=== PATIENT | female | born 1990 | race Caucasian/White ===

== ENCOUNTER 2018-05-20 09:39 | Emergency (ER) | payer OTHER ==
--- OUTSIDE RECORDS SUMMARY | 2018-05-20 09:45 | XMS REPORT ---
:1990 External Reference #:[id number] Author Organization [facility] Address [address] [place] [address] Phone [phone] Care Team Providers Name Role Phone Dilia Barreto Care Team Information Security Guard Dispatcher Unavailable Dilia Barreto Primary Care Physician Unavailable Payers Type Date Identification Numbers Payment Provider Subscriber Medicaid Effective: Policy Number: [id number] [facility] Keli Pierre 2014 PayID: [id number] [address] [address] [place] [address] Problems Date Description Provider Status Onset: 12/28/2016 Type II diabetes mellitus Dilia Barreto M.D. Active uncontrolled Onset: 08/23/2015 Acute gingivitis Dilia Barreto M.D. Active Onset: 08/23/2015 Conjunctivitis Dilia Barreto M.D. Active Onset: 08/23/2015 Irritable bowel syndrome Dilia Barreto M.D. Active Onset: 08/23/2015 Type 2 diabetes mellitus Dilia Barreto M.D. Active Onset: 10/30/2014 Morbid obesity Dilia Barreto M.D. Active Onset: 10/30/2014 Depressive disorder Dilia Barreto M.D. Active Onset: 10/30/2014 Vitamin D deficiency Dilia Barreto M.D. Active Onset: 11/22/2010 Hypothyroidism Dilia Barreto M.D. Active Family History Date Family Member(s) Problem(s) Comments Father age? DM. estranged. Mother DM. Number of Children None Number of Siblings by mother - 1 brother, 1 sister - good health. from father - ??2 brothers - drinkers, 1 sister - healthy. First Brother 30 dt AIDS. lived in [place]. Maternal Grandmother 87, ? cause of . Social History Type Date Description Comments Education Highest level of education completed is 10th grade. special education classes. Marital Status Patient is Living Situation Lives with spouse, mother and step-father. spouse is also disabled. 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 with cousin. Abuse No history of abuse Cigarette Use Former Cigarette Smoker /2 quit 11/28 Pack Daily ETOH Use Rare Smoking Patient is a former smoker Daily Caffeine Consumes on average 1 soda drinks a 2 liter bottle per day of soda every day when her check comes in at the beginning of the month. Exercise Type/Frequency Exercises regularly . Walks Current Seat Belt/Car Seat Always uses a seat belt Contraceptive Methods Does not currently use any method of control. Trying to get . Allergies, Adverse Reactions, Alerts Date Description Reaction Status Severity Comments 08/20/2000 Ceclor active 05/29/2016 Metformin diarrhea active diarrhea Medications Medication Date Status Form Strength Qnty SIG Indications Ordering Provider Lac-Hydrin 05/07 Active Lotion 12% 400gm apply E11.65 Dilia Young twice Mary Lou, daily to M.D. feet. Bupropion HCL ER 05/07 Active Tablets ER 100mg 60tabs take one F17.210 Dilia Young () 12HR tablet Mary Lou, by mouth M.D. once daily for 7 days then one twice a day- one in the morning, second at noon Glipizide ER 04/08 Active Tablets ER 5mg 60tabs take one E11.65 24HR tablet Catherine, by mouth AUTOMATIC EDGER twice a day Cetirizine HCL 04/04 Active Tablets 10mg 30tabs 1 by J30.9 Cony Regalado mouth José Miguel, every DRAW BENCH OPERATOR day Spacer For Mdi 04/04 Active 1units for use Slime30.9 Cony Regalado with José Miguel inhaler DRAW BENCH OPERATOR [place] For 03/05 Active 30units use as Dilia Young Kikp directed Mary Lou with Debra guevara fax to [place] 02/07 Active Kit w/Device 1units test Dilia Young Mini daily Mary Lou, dx: M.D. e11 True Metrix Self 02/05 Active Strips 200units test Gustavo Laws Monitoring Blood /2017 blood Entiat Glucose Strips MD leigh ann twice daily - dx: e11 - last seen 01/10/18 True Metrix 02/05 Active Kit W/Device 1units test Dilia Young Meter blood Mary Lou, sugar qd M.D. - dx: - last seen 01/10/18 Chantix Starting 01/10 Active Tablets 0.5mg X 1tabs take as F17.210 Dilia Young Month 11 & 1 mg directed Mary Lou, X 42 . 0.5 mg M.D. daily x3 0.5 mg twice daily days 4-7. 1 mg by mouth twice daily after that. Alogliptin 11/17 Active Tablets 25mg 30tabs 1 by E11.65 Dilia Young Benzoate mouth Mary Lou, once a M.D. day Basaglar Kwikpen 05/15 Active Solution 100Unit/M 30ml inject 7 Dilia Young Pen-Inject L units Mary Lou, daily M.D. Alcohol Prep 12/28 Active Pads 70% 200units use as E11.65 Dilia Young directed Mary Lou, take M.D. blood sugar twice daily Aspir-[address] 05[address] 81mg 100tabs 1 by E11.65 Dilia Young mouth Mary Lou, every M.D. day Ventolin HFA 08/05 Active Aerosol 108(90Bas 18units 2 puffs R05 Dilia Young /2013 e) every 4 Mary Lou, mcg/Act hours as M.D. needed Levothyroxine 06/08 Active Tablets 25mcg 30tabs 1 by E03.9 Dilia Young Sodium mouth Mary Lou, every M.D. day Levothyroxine 04/16 Active Tablets 200mcg 30tabs 1 by E03.9 Dilia Young Sodium mouth Mary Lou, every M.D. day Ibuprofen 12 Active Tablets 600mg 90tabs 1 by R51 Dilia Young mouth Mary Lou, three M.D. times a day as needed with food Gummi Active Chewtabs 2 po qd Unknown Multivitamin /0000 One Touch Ultra 01/31 Hx One use as Dilia Young Blue Glucometer /2017 directed Mary Lou, - fax to M.D. 02/05 selena [phone] Flagyl 07/17 Hx Tablets 500mg 21tabs 1 by Dilia Young mouth Mary Lou, - three M.D. 11/01 times daily Trulicity 05/09 Hx Solution 1.5mg/0.5 Dilia Young Pen-Inject ML Mary Lou, - M.D. 06/08 Lantus Solostar 05/09 Hx Solution 100Unit/M 15ml 5 units Dilia Young Pen-Inject L every Mary Lou, - morning M.D. 06/08 Acarbose 04/09 Hx Tablets 50mg 90tabs 1 by Dilia Young mouth Mary Lou, - three M.D. 11/01 daily with meals Acarbose 12/28 Hx Tablets 25mg 90tabs 1 by Dilia Young mouth Mary Lou, - three M.D. 04/09 daily at the beginnin g of every meal Topiramate ER 05/29 Hx CS24 25mg 30units 1 by E66.01 Dilia Young mouth Mary Lou, - daily M.D. 05/29 Glipizide ER 05/29 Hx Tablets ER 10mg 60tabs 1 by E1165 Dilia Young 24HR mouth Mary Lou, - twice M.D. 04/08 Januvia 05/29 Hx Tablets 100mg 30tabs 1 by E1165 Dilia Young mouth Mary Lou, - every M.D. Omeprazole 05/26 Hx Capsules 40mg 30caps [address] capsule Mary Lou, - by mouth M.D. 06/08 Glipizide ER 03/01 Hx Tablets ER 5mg 60tabs one E1165 24HR tablet TAMEKA Gil[place] - twice 05/29 daily by mouth Onetouch Ultra 03/01 Hx Strips 100units check Fausto Laws Blue blood Midura, - sugar M.D. 02/05 once a day dx: e11.65 last seen 05/29/16 Azithromycin 08/27 Hx Tablets 250mg 12tabs take 2 J01.90 tablets Catherine, - by mouth AUTOMATIC EDGER 02/28 x then take 1 tablet daily for next 6 days Tobradex 08/27 Hx Suspension 0.3-0.1% 5ml 2qtt q4h H10.89 in each Catherine, - eye AUTOMATIC EDGER 02/28 until clear Ciloxan 08/23 Hx Solution 0.3% 5ml 1-2 H10.89 Dilia LJessica drops to Mary Lou, - right M.D. 08/27 eye every 1-6 hours until better. Metformin HCL 05/21 Hx Tablets 500mg 90tabs 1 by Dilia Young mouth Mary Lou, - every M.D. Vitamin D 05/21 Hx Capsules 61187Proe 1caps take 1 Dilia LJessica (Ergocalciferol) capsule Mary Lou, - by mouth M.D. 01/10 once a month Metamucil 04/29 Hx Powder 28.3% 1units 1 Dilia LJessica teaspoon Mary Lou, - in 8oz M.D. 06/08 water at /2016 night until desired effect. Gummi Bear 09/21 Hx Chewtabs 60units 2 by Dilia Young Multivitamin/Min mouth paola Barretol - every M.D. Medroxyprogester 08/05 Hx Tablets 10mg 10tabs 1 by 626.4 Indigo one Acetate mouth Nain DRAW BENCH OPERATOR - daily x 10/30 10 Azithromycin 08/05 Hx Tablets 250mg 6tabs 2 by 786.2 Indigo mouth Nain DRAW BENCH OPERATOR - today 08/10 and tab x 4 days Benzonatate 08/05 Hx Capsules 100mg 30caps 1 by 786.2 Indigo mouth Nain DRAW BENCH OPERATOR - three 08/15 times a day as needed for cough Metrogel-Vaginal 08/05 Hx Gel 0.75% 70gm 1 applicat TAMEKA Gil[place] orful by 08/10 way vagina at bedtime x 5 days Fluconazole 08/05 Hx Tablets 150mg 1tabs 1 by mouth x TAMEKA Gil[place] - 1 08/06 Escitalopram 08/05 Hx Tablets 20mg 30tabs 1 by E11.65 Dilia Hannah Oxalate mouth Mary Lou, - every M.D. Sulfamethoxazole 07/16 Hx Tablets 800-160mg 20tabs 1 by 916.5 Kizzy /Trimethoprim mouth Tevin, - twice a Afnp-C 07/26 day x days Medroxyprogester 06/08 Hx Tablets 10mg 10tabs 1 po 626.4 Indigo one Acetate daily x TAMEKA Gil[place] - 10 days 08/05 Escitalopram 06/08 Hx Tablets 10mg 30tabs 1 po qd 311 Indigo TAMEKA Gil[place] 08/05 Levothyroxine 02/13 Hx Tablets 175mcg 30tabs 1 po 244.9 Indigo Sodium daily TAMEKA [place] - 04/16 Medroxyprogester 12/12 Hx Tablets 10mg 10tabs 1 po 626.4 Indigo one Acetate daily x TAMEKA [place] - 10 days 06/08 Chantix 12/12 Hx Tablets 0.5mg X 1Pack use as 305.1 11 & 1 mg directed TAMEKA Gil[place] X 42 and call 06/08 [facility] on Metrogel-Vaginal 09/22 Hx Gel 0.75% 70gm 1 applicat TAMEKA Gilletteul pv 09/27 hs x days Permethrin 09/19 Hx Cream 5% 60gm massage 133.0 into TAMEKA Gillette skin 12/12 neck to toes and wash off in 8 - 12 hrs, Repeat in a week Cetirizine HCL 09/19 Hx Tablets 10mg 30tabs 1 po qd 133.0 TAMEKA Gillette 12/12 Triamcinolone 09/19 Hx Cream 0.5% 15gm apply to 696.8 Indigo Acet affected Nain DRAW BENCH OPERATOR - area bid 12/12 prn 09/19 Hx Tablets 28-0.8mg 30tabs 1 po V72.31 Indigo Vitamins /2012 daily Nain, DRAW BENCH OPERATOR - 05/21 Medroxyprogester 09/19 Hx Tablets 10mg 10tabs 1 po 626.4 Indigo one Acetate daily x Nain DRAW BENCH OPERATOR - 10 days 12/12 Loratadine/Pseud 09/27 Hx Tablets ER 10-240mg 30tabs 1 po qd Leslie oephedrine /2011 24HR Catherine, - AUTOMATIC EDGER 09/19 Pseudoephedrine 09/25 Hx Tablets 30mg 20tabs Take one 381.81 Leslie HCL tablet Catherine, - PO bid AUTOMATIC EDGER 09/27 Aquaphor 09/25 Hx Ointment 1bottle Apply to 692.9 affected Catherine, - areas at AUTOMATIC EDGER 09/27 belt line bid Topicort 09/25 Hx Cream 0.25% 30gm rub in Leslie sparingl Catherine, - y bid AUTOMATIC EDGER 09/19 prn Levothyroxine 05/23 Hx Tablets 150mcg 30tabs 1 po qd 244.9 Indigo Sodium /2011 Nain DRAW BENCH OPERATOR - 02/13 Lice Killing 01/10 Hx Shampoo 0.33-4% 118ml leave Dilia L. Maximum Strength shampoo Mary Lou, - in for M.D. 09/25 minutes Levothyroxine 10/31 Hx 100mcg 30units 1 po qd Liset - Afnp-C 05/23 Prednisone 10/18 Hx Tablets 20mg 21tabs 3 po qd x 3 d, 2 Liset, - po qd x Afnp-C 09/25 4d, 1 po qd x 4d, take with food Levothyroxine 10/13 Hx Dilia L. Sodium /2010 Mary Lou - M.D. 10/31 Topicort 09/20 Hx Cream 0.25% 30gm rub in sparingl Liset, - y bid Afnp-C 10/18 pr Synthroid 01/18 Hx Tablets 75mcg 30tabs 1 po qd Dilia L. /2010 Mary Lou - M.D. 10/18 Cipro 01/10 Hx Tablets 250mg 14tabs 1 po bid 599.0 Dilia L. x 7 d Mary Lou - M.D. 09/20 Betamethasone 11/22 Hx Ointment 0.05% 15gm thin Dilia L. Dipropionate layer Mary Lou, - twice a M.D. 09/20 day affected area No refills without seeing a doctor first Cipro 08/17 Hx Tablets 250mg 10tabs 1 po bid 599.0 Elizabeth M. for 5 Karla, - days M.D. 11/22 Astelin 08/17 Hx Solution 137mcg/Sp 30ml 2 sprays 477.8 [facility]. ray bid prn Karla, - runny M.D. 11/22 Lidex 02/03 Hx Ointment 0.05% 30gm apply 782.1 bid prn Teresita Abarca-C 08/17 Bactrim DS 01/21 Hx Tablets 800-160 10tabs 1 po bid X 5 Days Teresita Abarcanp-C 02/03 Nicoderm CQ 01/20 Hx Patches 7mg/24HR 7units 1 patch 305.1 24HR q 24 hrs Teresita Abarca-C 08/17 Synthroid 01/29 Hx Tablets 50mcg 30tabs 1 po qd Fausto TJessica /2007 Pato, - M.D. 10/18 Bactrim DS 05/09 Hx Tablets 160mg;800 10tabs 1 PO bid Ami /2007 mg von - Feltdav, 01/27 M.D. Zithromax 05/01 Hx Tablets 250mg 1tabs 4 tabs Ami /2007 po x 1 von - Evi, 01/27 M.D. Nicoderm CQ 11/14 Hx Patches 14mg/Day 14units change Teresita Mayo-C 05/01 site x weeks Kwell Shampoo 07/25 Hx 120ml Apply To Fausto T. Hair as Midura, - Dirceted M.D. 08/17 Albuterol Mdi 07/03 Hx 1units 2 puffs q 4hr [facility], - prn Afnp-C 04/30 cough wheeze Kwell Shampoo 05/25 Hx 60cc Lather Jcarlos S. /2002 X4mins [place], - Rinse M.D. 12/22 Repeat 7-10Days Cortisporin Otic 05/18 Hx Solution 10ml 3-4 gtts In R Ear Catherine, - tid X AUTOMATIC EDGER 12/22 5-7 Days Zithromax 05/19 Hx 250mg 6units 2 tabs Jayla day 1 [facility], - Afnp-C 07/08 1 tab qd days 2 thru 5 Hydrocortisone 03/18 Hx 2.5% 45gm bid Or Kizzy Cream tid prn Tevin, - To Afnp-C 11/14 Affected Areas Claritin D 24 HR 03/18 Hx 30units One PO Kizzy qd Tevin, - Afnp-C 11/14 Nix 02/03 Hx 4Oz Use as Kizzy Directed Tevin, - Afnp-C 12/22 Augmentin 09/23 Hx 500mg 20units 1 bid Fausto T. Midura, - M.D. 12/22 Gym 07/29 Hx Should Be Out [facility], - Of Gym Afnp-C 08/05 Until 08/06/01 Elimite Cream 03/18 Hx 60Gmtube Apply To ALL Skin Catherine, - Surfaces AUTOMATIC EDGER 03/28 Neck Down And Wash Off After 12 To 14 Hours. Medrol Dosepack 03/18 Hx 4mg 1units as Directed Catherine, - AUTOMATIC EDGER 03/28 Zithromax 11/10 Hx 250mg 6units 2 Tabs Fausto T. Day 1 Midura, - M.D. 12/11 1 Tab qd Days 2 Thru 5 Robitussin DM 11/10 Hx 4Oz One-Two Fausto T. /2000 TSP Q4H Midura, - prn as M.D. 12/11 Needed For Cough Nix Shampoo 10/31 Hx Adeqamt Use Gustavo Prieto /2000 Leave On Bipin, - For 20 M.D. 11/14 Minutes; February Repeat X1 In 2-3 Days Nizoral Cream 08/20 Hx 30GMS Apply qd Leslie /1999 Catherine, - AUTOMATIC EDGER 09/19 Gummi Hx Chewtabs 2 po qd Unknown Multivitamin /0000 - 09/21 Medications Administered in Office Medication Date Status Form Strength Qnty SIG Indications Ordering Provider Brief Administered Injection Dilia Young Emotional/Beha 017 josef Barreto M.D. W/ Scoring Doc Per Standard Inst TB Intradermal Administered Injection Jeison Prieto Test 002 Debra Holley Immunizations CPT Code Status Date Vaccine Lot # 11689 Given 11/02/2017 Influenza vac quadrivalent preservative free 3yrs [id number] and up 56139 Given 12/28/2016 Pneumococcal Conjugate Vacc-13 [id number] 84466 Given 08/23/2015 Influenza Vac, Quadrivalent, Slit Virus, Im [id number] 31018 Given 04/27/2014 Tdap Tetanus, W Pertussis [id number] 09659 Given 11/12/2003 Hepatitis B Immunization, -19 Years 13253 Given 11/12/2003 Hepatitis B Immunization, -19 Years 79289 Given 06/18/2002 Hepatitis B Immunization, [place]-19 Years 63506 Given 10/27/1996 Hepatitis B Immunization, [place]-19 Years 47108 Given 03/08/1993 Td Immunization, For Use In Individuals 7 Years Or Older 33857 Given 03/08/1993 MMR Virus Immunization 58660 Given 12/13/1990 DTP Immunization 64970 Given 08/15/1989 MMR Virus Immunization 00880 Given 08/15/1989 DTP Immunization 96284 Given 02/12/1989 DTP Immunization 20983 Given 1988 DTP Immunization Vital Signs Date Vital Result Comment 05/15/2018 BP Systolic 138 mmHg BP Diastolic 70 mmHg Heart Rate 84 /min Body Temperature 97.2 F Respiratory Rate 18 /min Height 66 inches 5'6" Weight 387.25 lb BMI (Body Mass Index) 62.5 kg/m2 05/07/2018 BP Systolic 118 mmHg BP Diastolic 78 mmHg Heart Rate 76 /min Body Temperature 97.6 F Respiratory Rate 16 /min Height 66 inches 5'6" Weight 387.00 lb BMI (Body Mass Index) 62.5 kg/m2 04/08/2018 BP Systolic 110 mmHg BP Diastolic 72 mmHg Heart Rate 88 /min Body Temperature 97.3 F Height 66 inches 5'6" Weight 390.00 lb BMI (Body Mass Index) 62.9 kg/m2 04/04/2018 BP Systolic 124 mmHg BP Diastolic 80 mmHg Heart Rate 92 /min Body Temperature 97.3 F Respiratory Rate 18 /min Height 66 inches 5'6" Weight 389.25 lb BMI (Body Mass Index) 62.8 kg/m2 01/10/2018 BP Systolic 118 mmHg BP Diastolic 80 mmHg Heart Rate 80 /min Body Temperature 98.2 F Respiratory Rate 18 /min Height 66 inches 5'6" Weight 391.00 lb BMI (Body Mass Index) 63.1 kg/m2 11/02/2017 BP Systolic 120 mmHg BP Diastolic 74 mmHg Heart Rate 66 /min Body Temperature 97.9 F Height 66 inches 5'6" Weight 394.12 lb BMI (Body Mass Index) 63.6 kg/m2 07/11/2017 BP Systolic 128 mmHg BP Diastolic 82 mmHg Heart Rate 90 /min Body Temperature 97.2 F Height 66 inches 5'6" Weight 418.50 lb BMI (Body Mass Index) 67.5 kg/m2 06/08/2017 BP Systolic 128 mmHg BP Diastolic 72 mmHg Heart Rate 72 /min Body Temperature 97.3 F Respiratory Rate 16 /min Height 66 inches 5'6" Weight 423.25 lb BMI (Body Mass Index) 68.3 kg/m2 05/09/2017 BP Systolic 130 mmHg BP Diastolic 80 mmHg Heart Rate 76 /min Body Temperature 98.0 F Respiratory Rate 18 /min Height 66 inches 5'6" Weight 428.00 lb BMI (Body Mass Index) 69.1 kg/m2 04/09/2017 BP Systolic 120 mmHg BP Diastolic 78 mmHg Heart Rate 80 /min Body Temperature 98.2 F Respiratory Rate 18 /min Height 66 inches 5'6" Weight 428.00 lb BMI (Body Mass Index) 69.1 kg/m2 12/28/2016 BP Systolic 120 mmHg BP Diastolic 80 mmHg Heart Rate 76 /min Body Temperature 97.9 F Respiratory Rate 18 /min Height 66 inches 5'6" Weight 442.00 lb BMI (Body Mass Index) 71.3 kg/m2 05/29/2016 BP Systolic 150 mmHg BP Diastolic 80 mmHg Heart Rate 88 /min Body Temperature 98.0 F Respiratory Rate 18 /min Height 66 inches 5'6" Weight 448.00 lb BMI (Body Mass Index) 72.3 kg/m2 05/26/2016 BP Systolic 138 mmHg BP Diastolic 74 mmHg Heart Rate 80 /min Body Temperature 98.1 F Respiratory Rate 16 /min Height 66 inches 5'6" Weight 443.00 lb BMI (Body Mass Index) 71.5 kg/m2 03/01/2016 BP Systolic 122 mmHg BP Diastolic 92 mmHg Heart Rate 80 /min Body Temperature 98.7 F Height 457 inches 38'1" 08/27/2015 BP Systolic 120 mmHg BP Diastolic 80 mmHg Heart Rate 76 /min Body Temperature 98.0 F Respiratory Rate 18 /min Weight 467.00 lb 08/23/2015 BP Systolic 120 mmHg BP Diastolic 80 mmHg Heart Rate 96 /min Body Temperature 98.8 F Respiratory Rate 16 /min Weight 468.00 lb 05/21/2015 BP Systolic 128 mmHg BP Diastolic 66 mmHg Heart Rate 78 /min Body Temperature 98.6 F Respiratory Rate 16 /min Height 66 inches 5'6" Weight 466.25 lb BMI (Body Mass Index) 75.2 kg/m2 10/30/2014 BP Systolic 134 mmHg BP Diastolic 80 mmHg Heart Rate 72 /min Body Temperature 98.1 F Respiratory Rate 16 /min Height 66 inches 5'6" Weight 432.00 lb BMI (Body Mass Index) 69.7 kg/m2 08/05/2014 BP Systolic 118 mmHg BP Diastolic 82 mmHg Heart Rate 76 /min Body Temperature 98.5 F Height 66 inches 5'6" Weight 416.00 lb BMI (Body Mass Index) 67.1 kg/m2 07/16/2014 BP Systolic 120 mmHg BP Diastolic 80 mmHg Heart Rate 80 /min Body Temperature 99.0 F Respiratory Rate 18 /min Height 66 inches 5'6" Weight 408.00 lb BMI (Body Mass Index) 65.8 kg/m2 06/08/2014 BP Systolic 134 mmHg BP Diastolic 80 mmHg Heart Rate 78 /min Body Temperature 98.2 F Respiratory Rate 18 /min Height 66 inches 5'6" Weight 407.50 lb BMI (Body Mass Index) 65.8 kg/m2 12/12/2013 BP Systolic 136 mmHg BP Diastolic 80 mmHg Heart Rate 72 /min Body Temperature 98.0 F Respiratory Rate 18 /min Height 66 inches 5'6" Weight 389.00 lb BMI (Body Mass Index) 62.8 kg/m2 09/19/2013 BP Systolic 122 mmHg BP Diastolic 84 mmHg Heart Rate 80 /min Body Temperature 98.8 F Respiratory Rate 18 /min Height 66 inches 5'6" Weight 393.00 lb BMI (Body Mass Index) 63.4 kg/m2 09/25/2012 BP Systolic 120 mmHg BP Diastolic 70 mmHg Heart Rate 96 /min Height 66 inches 5'6" 10/18/2011 BP Systolic 122 mmHg BP Diastolic 86 mmHg Heart Rate 84 /min Body Temperature 98.8 F Height 66 inches 5'6" 09/20/2011 Heart Rate 72 /min Body Temperature 98.8 F Height 66 inches 5'6" Weight 35.00 lb BMI (Body Mass Index) 5.6 kg/m2 01/10/2011 BP Systolic 124 mmHg BP Diastolic 70 mmHg Heart Rate 72 /min Body Temperature 98.4 F Height 66 inches 5'6" Weight 350.00 lb BMI (Body Mass Index) 56.5 kg/m2 11/22/2010 BP Systolic 124 mmHg BP Diastolic 82 mmHg Heart Rate 80 /min Body Temperature 99.2 F Respiratory Rate 20 /min Height 66 inches 5'6" Weight 350.00 lb BMI (Body Mass Index) 56.5 kg/m2 08/17/2009 BP Systolic 138 mmHg BP Diastolic 70 mmHg Heart Rate 88 /min Body Temperature 99.6 F Height 66 inches 5'6" Weight 35.00 lb BMI (Body Mass Index) 5.6 kg/m2 02/03/2009 BP Systolic 118 mmHg BP Diastolic 60 mmHg Heart Rate 96 /min Body Temperature 98.6 F Weight 350.00 lb 01/20/2009 BP Systolic 110 mmHg BP Diastolic 90 mmHg Body Temperature 98.3 F Weight 322.00 lb 04/30/2008 BP Systolic 130 mmHg BP Diastolic 80 mmHg Heart Rate 80 /min Body Temperature 98.2 F 01/28/2008 BP Systolic 140 mmHg BP Diastolic 80 mmHg Heart Rate 88 /min 05/01/2007 BP Systolic 136 mmHg BP Diastolic 76 mmHg Heart Rate 104 /min Weight 350.00 lb Greater Than 01/30/2007 BP Systolic 120 mmHg BP Diastolic 80 mmHg Heart Rate 82 /min Weight 35.00 lb Weight Percentile <5th 11/14/2005 BP Systolic 118 mmHg BP Diastolic 78 mmHg Heart Rate 74 /min Respiratory Rate 14 /min Weight 320.00 lb Weight Percentile >95th 09/06/2005 BP Systolic 114 mmHg BP Diastolic 76 mmHg Heart Rate 60 /min Body Temperature 98.5 F Weight 310.00 lb Weight Percentile >95th 07/03/2005 BP Systolic 100 mmHg BP Diastolic 60 mmHg Heart Rate 82 /min Body Temperature 98.9 F Respiratory Rate 12 /min 05/18/2003 BP Systolic 128 mmHg BP Diastolic 88 mmHg Heart Rate 84 /min Body Temperature 98.5 F 02/02/2003 BP Systolic 136 mmHg BP Diastolic 90 mmHg Heart Rate 72 /min Weight 336.00 lb Weight Percentile >95th 06/30/2002 BP Systolic 120 mmHg BP Diastolic 70 mmHg Heart Rate 82 /min Weight 326.00 lb Weight Percentile >95th 06/18/2002 BP Systolic 128 mmHg BP Diastolic 76 mmHg Heart Rate 80 /min Body Temperature 98.3 F Height 66 inches 5'6" Weight 318.00 lb BMI (Body Mass Index) 51.3 kg/m2 Weight Percentile >95th Height Percentile 85 % 05/19/2002 Heart Rate 72 /min Body Temperature 98.8 F Weight 317.00 lb Weight Percentile >95th 03/18/2002 Heart Rate 92 /min Body Temperature 98.4 F 01/27/2002 Heart Rate 102 /min Weight 320.00 lb Weight Percentile >95th 09/23/2001 Body Temperature 97.7 F Weight 301.00 lb Weight Percentile >95th 07/29/2001 BP Systolic 122 mmHg BP Diastolic 88 mmHg Heart Rate 90 /min Body Temperature 99.2 F Respiratory Rate 16 /min Weight 295.00 lb Weight Percentile >95th 05/15/2001 Weight 295.00 lb Weight Percentile >95th 03/18/2001 BP Systolic 122 mmHg BP Diastolic 62 mmHg Heart Rate 76 /min Body Temperature 98.2 F Weight 290.00 lb 12/11/2000 BP Systolic 110 mmHg BP Diastolic 60 mmHg Heart Rate 80 /min Height 65.75 inches 5'5.75" Weight 276.00 lb BMI (Body Mass Index) 45.9 kg/m2 Weight Percentile >95th Height Percentile 95 % Right Visual Acuity Distance 20/70 Left Visual Acuity Distance 20/40 Color Passed 11/10/2000 BP Systolic 92 mmHg BP Diastolic 60 mmHg Body Temperature 100.7 F Weight 274.00 lb 08/20/2000 BP Systolic 124 mmHg BP Diastolic 84 mmHg Body Temperature 97.7 F Weight 271.00 lb Results Test Date Test Result H/L Range Note Laboratory test finding 05/15/2018 C Diff Toxin B PCR Stool <pending> Culture Stool & Sensitivity <pending> O&P Ova And Parasites 05/15/2018 O&P Ova & Parasite Exam <pending> Laboratory test finding 04/08/2018 Hemoglobin A1c (Fma) 5.6% % 4.1-5.7 Laboratory test finding 01/10/2018 Hemoglobin A1c 5.9 Laboratory test finding 11/02/2017 Hemoglobin A1c (Fma) 5.3 % 4.1-5.7 Laboratory test finding 11/02/2017 TSH 1.77 mIU/L 0.50-6.00 Free T4 1.38 ng/dL 0.75-1.54 Comprehensive Metabolic Prof 11/02/2017 Sodium 141 mEq/L 134-149 Potassium 4.3 mEq/L 3.6-5.5 Chloride 108 mEq/L 94-112 Carbon Dioxide 23 mEq/L 21-32 Glucose 98 mg/dL 70-105 BUN 15 mg/dL 6-26 Creatinine 0.9 mg/dL 0.6-1.4 BUN/Creat Ratio 16.7 CALC 8.0-36.0 Calcium 9.1 mg/dL 8.6-10.2 Total Protein 6.7 g/dL 6.4-8.3 Albumin 4.2 g/dL 3.8-5.5 Globulin 2.5 g/dL 2.0-4.8 A/G Ratio 1.7 CALC 0.6-2.3 Alk. Phosphatase 68 U/L 30-110 Alt (SGPT) 36 U/L High 7-35 1 Ast (Sgot) 15 U/L 5-34 Total Bilirubin 0.5 mg/dL 0.2-1.3 GFR Non- >60 ml/min/1.73m^ >=60 GFR >60 ml/min/1.73m^ >=60 Complete Blood Count 11/02/2017 WBC 9.6 x10^3/UL 3.6-9.6 RBC 4.48 x10^6/UL 3.90-5.70 HGB 13.6 g/dL 12.1-17.2 HCT 40 % 36-50 MCV 88.0 fL 82.2-97.4 MCH 30.4 pg 27.6-33.3 MCHC 34.3 g/dL 33.0-35.5 RDW 13.6 % 11.6-13.7 PLT 242 x10^3/UL 150-400 MPV 8.8 fL 7.4-10.4 Gran # 7.0 x10^3/UL 1.5-7.2 Lymph# 2.3 x10^3/UL 0.7-4.9 Sanders# 0.3 x10^3/UL 0.1-0.9 Gran % 72.0 % 42.2-75.2 Lymph % 24.1 % 20.5-51.1 Sanders% 3.9 % 1.7-9.3 Laboratory test finding 11/02/2017 Free T3 2.17 pg/mL 2.00-4.90 Age [birth year]907[birth year]2017 Age 26-29 Diagn See Comment: 2 Adeq See Comment: 3 [email or web address] See Comment: 4 Perfor See Comment: 5 Comm . Note See Comment: 6 Iglbp See Comment: 7 Reflex See Comment: 8 Laboratory test finding 07/11/2017 PDF [id number] SEE IMAGE Vaginitis Plus Nuswab 07/11/2017 Atopobium vaginae Moderate - 1 Score 9 Bvab 2 Moderate - 1 Score 9 Megasphaera 1 High - 2 Score 9, 10 Leigha albicans, Brenda Negative Negative 9 Leigha glabrata, Brenda Negative Negative 9, 11 Trich vag by Brenda Negative Negative 9 Chlamydia trachomatis, Brenda Negative Negative 9 Neisseria gonorrhoeae, Brenda Negative Negative 9 Laboratory test finding 04/09/2017 Hemoglobin A1c 9.8 Laboratory test finding 04/06/2017 Urine Microalbumin (Fma) 32.2 Laboratory test finding 04/06/2017 Triiodothyronine (T3) 114 ng/dL 71- 180 12 Reverse T3, Serum 17.0 ng/dL 9.2-24.1 12 Lipid Profile 04/06/2017 Cholesterol 219 mg/dL High 120-200 Triglycerides 288 mg/dL High 30-200 HDL Cholesterol 31 mg/dL 30-85 LDL (Calculated) 130 CALC High 0-129 VLDL Cholesterol 58 mg/dL High 0-50 HDL Risk Factor 7.1 CALC High 0.0-4.4 Laboratory test finding 04/06/2017 TSH 51.58 mIU/L High 0.50-6.00 Free T4 0.53 ng/dL Low 0.75-1.54 Vitamin D25 31 30-100 Complete Blood Count 04/06/2017 WBC 8.1 x10^3/UL 3.6-9.6 RBC 4.76 x10^6/UL 3.90-5.70 HGB 14.3 g/dL 12.1-17.2 HCT 42 % 36-50 MCV 88.0 fL 82.2-97.4 MCH 29.9 pg 27.6-33.3 MCHC 34.1 g/dL 33.0-35.5 RDW 14.0 % High 11.6-13.7 PLT 247 x10^3/UL 150-400 MPV 8.0 fL 7.4-10.4 Gran # 5.2 x10^3/UL 1.5-7.2 Lymph# 2.6 x10^3/UL 0.7-4.9 Sanders# 0.3 x10^3/UL 0.1-0.9 Gran % 63.1 % 42.2-75.2 Lymph % 32.4 % 20.5-51.1 Sanders% 4.5 % 1.7-9.3 Comprehensive Metabolic Prof 04/06/2017 Sodium 138 mEq/L 134-149 Potassium 4.1 mEq/L 3.6-5.5 Chloride 97 mEq/L 94-112 Carbon Dioxide 24 mEq/L 21-32 Glucose 223 mg/dL High 70-105 BUN 11 mg/dL 6-26 Creatinine 0.8 mg/dL 0.6-1.4 BUN/Creat Ratio 13.8 CALC 8.0-36.0 Calcium 8.8 mg/dL 8.6-10.2 Total Protein 7.0 g/dL 6.4-8.3 Albumin 4.2 g/dL 3.8-5.5 Globulin 2.8 g/dL 2.0-4.8 A/G Ratio 1.5 CALC 0.6-2.3 Alk. Phosphatase 79 U/L 30-110 Alt (SGPT) 55 U/L High 7-35 Ast (Sgot) 41 U/L High 5-34 Total Bilirubin 0.7 mg/dL 0.2-1.3 GFR Non- >60 ml/min/1.73m^ >=60 GFR >60 ml/min/1.73m^ >=60 Laboratory test finding 04/06/2017 Free T3 2.08 pg/mL 2.00-4.90 LDL, Direct 121 mg/dL 0-130 Laboratory test finding 12/28/2016 Hemoglobin A1c (Fma) 8.5 % High 4.1- 5.7 Comprehensive Metabolic Prof 04/20/2016 Sodium 137 mEq/L 134-149 Potassium 4.5 mEq/L 3.6-5.5 Chloride 96 mEq/L 94-112 Carbon Dioxide 27 mEq/L 21-32 Glucose 234 mg/dL High 70-105 13 BUN 14 mg/dL 6-26 Creatinine 0.7 mg/dL 0.6-1.4 BUN/Creat Ratio 20.0 CALC 8.0-36.0 Calcium 8.8 mg/dL 8.6-10.2 Total Protein 7.2 g/dL 6.4-8.3 Albumin 4.1 g/dL 3.8-5.5 Globulin 3.1 g/dL 2.0-4.8 A/G Ratio 1.3 CALC 0.6-2.3 Alk. Phosphatase 87 U/L 30-110 Alt (SGPT) 61 U/L High 7-35 14 Ast (Sgot) 46 U/L High 5-34 15 Total Bilirubin 0.6 mg/dL 0.2-1.3 GFR Non- >60 ml/min/1.73m^ >=60 GFR >60 ml/min/1.73m^ >=60 Laboratory test finding 04/20/2016 Free T4 0.89 ng/dL 0.75-1.54 16 TSH 56.28 mIU/L High 0.50-6.00 17 Laboratory test finding 04/20/2016 Hemoglobin A1c (Fma) 11.7 % High 4.1- 5.7 Laboratory test finding 08/23/2015 Hemoglobin A1c 7.3 % High 4.1-5.7 (Fma/CMC,CX) Laboratory test finding 05/21/2015 Hemoglobin A1c 6.5 % High 4.1-5.7 (Fma/CMC,CX) Laboratory test finding 05/21/2015 Free T4 1.13 ng/dL 0.75-1.54 18 TSH 15.03 mIU/L High 0.50-6.00 19 Comprehensive Metabolic Prof 05/21/2015 Sodium 137 mEq/L 134-149 Potassium 4.2 mEq/L 3.6-5.5 Chloride 101 mEq/L 94-112 Carbon Dioxide 25 mEq/L 21-32 Glucose 164 mg/dL High 70-105 20 BUN 16 mg/dL 6-26 Creatinine 0.8 mg/dL 0.6-1.4 BUN/Creat Ratio 20.0 CALC 8.0-36.0 Calcium 8.8 mg/dL 8.6-10.2 Total Protein 7.4 g/dL 6.4-8.3 Albumin 3.9 g/dL 3.8-5.5 Globulin 3.5 g/dL 2.0-4.8 A/G Ratio 1.1 CALC 0.6-2.3 Alk. Phosphatase 73 U/L 30-110 Alt (SGPT) 58 U/L High 7-35 21 Ast (Sgot) 34 U/L 5-34 Total Bilirubin 0.4 mg/dL 0.2-1.3 Complete Blood Count 05/21/2015 WBC 7.4 x10^3/UL 3.6-9.6 RBC 4.47 x10^6/UL 3.90-5.70 HGB 13.8 g/dL 12.1-17.2 HCT 39 % 36-50 MCV 88.0 fL 82.2-97.4 MCH 30.9 pg 27.6-33.3 MCHC 35.1 g/dL 33.0-35.5 RDW 14.1 % High 11.6-13.7 PLT 213 x10^3/UL 150-400 MPV 8.2 fL 7.4-10.4 Gran # 5.0 x10^3/UL 1.5-7.2 Lymph# 2.1 x10^3/UL 0.7-4.9 Sanders# 0.3 x10^3/UL 0.1-0.9 Gran % 66.0 % 42.2-75.2 Lymph % 29.0 % 20.5-51.1 Sanders% 5.0 % 1.7-9.3 Lipid Profile 05/21/2015 Cholesterol 154 mg/dL 120-200 Triglycerides 264 mg/dL High 30-200 HDL Cholesterol 36 mg/dL 30-85 LDL (Calculated) 65 CALC 0-129 VLDL Cholesterol 53 mg/dL High 0-50 HDL Risk Factor 4.3 CALC 0.0-4.4 Laboratory test finding 05/21/2015 Vitamin D25 20 Low 30-100 LDL, Direct 91 mg/dL 0-130 Laboratory test finding 10/30/2014 TSH 22.42 mIU/L High 0.50-6.00 22 Free T4 0.90 ng/dL 0.75-1.54 Vitamin D25 23 Low 30-100 Basic Metabolic Profile 10/30/2014 Sodium 138 mEq/L 134-149 Potassium 4.2 mEq/L 3.6-5.5 Chloride 101 mEq/L 94-112 Carbon Dioxide 27 mEq/L 21-32 Glucose 98 mg/dL 70-105 BUN 19 mg/dL 6-26 Creatinine 0.7 mg/dL 0.6-1.4 BUN/Creat Ratio 27.1 CALC 8.0-36.0 Calcium 9.7 mg/dL 8.6-10.2 Laboratory test finding 08/05/2014 TSH 42.43 mIU/L High 0.50-6.00 23 Free T4 0.88 ng/dL 0.75-1.54 Lipid Profile 08/05/2014 Cholesterol 165 mg/dL 120-200 Triglycerides 229 mg/dL High 30-200 HDL Cholesterol 27 mg/dL Low 30-85 24 LDL (Calculated) 92 CALC 0-129 VLDL Cholesterol 46 mg/dL 0-50 HDL Risk Factor 6.1 CALC High 0.0-4.4 Comprehensive Metabolic Prof 08/05/2014 Sodium 138 mEq/L 134-149 Potassium 4.6 mEq/L 3.6-5.5 Chloride 103 mEq/L 94-112 Carbon Dioxide 27 mEq/L 21-32 Glucose 98 mg/dL 70-105 BUN 18 mg/dL 6-26 Creatinine 1.1 mg/dL 0.6-1.4 BUN/Creat Ratio 16.4 CALC 8.0-36.0 Calcium 9.3 mg/dL 8.6-10.2 Total Protein 7.1 g/dL 6.4-8.3 Albumin 3.9 g/dL 3.8-5.5 Globulin 3.2 g/dL 2.0-4.8 A/G Ratio 1.2 CALC 0.6-2.3 Alk. Phosphatase 85 U/L 30-110 Alt (SGPT) 24 U/L 7-35 Ast (Sgot) 15 U/L 5-34 Total Bilirubin 0.3 mg/dL 0.2-1.3 Laboratory test finding 06/08/2014 Free T4 1.31 ng/dL 0.75-1.54 TSH 6.31 mIU/L High 0.50-6.00 25 Laboratory test finding 04/14/2014 TSH 16.31 mIU/L High 0.50-6.00 26 Free T4 0.98 ng/dL 0.75-1.54 Laboratory test finding 02/12/2014 TSH 8.48 mIU/L High 0.50-6.00 27 Free T4 1.37 ng/dL 0.75-1.54 Laboratory test finding 12/12/2013 , Serum neg Laboratory test finding 09/19/2013 Thin Prep W/HPV(Lsil/ARIS/Asc) SEE NOTE 28 Vaginitis Dna Affirm 09/19/2013 Screen Trichomonas Vaginalis Dna NEGATIVE Screen Gardnerella Vaginalis Dna POSITIVE Screen Leigha Species Dna NEGATIVE Laboratory test finding 09/19/2013 TSH 11.13 mIU/L High 0.50-6.00 Free T4 1.30 ng/dL 0.75-1.54 Basic Metabolic Profile 09/19/2013 BUN 19 mg/dL 6-26 Calcium 10.2 mg/dL 8.6-10.2 Chloride 104 mEq/L 94-112 Creatinine 1.0 mg/dL 0.6-1.4 Carbon Dioxide 23 mEq/L 21-32 Glucose 82 mg/dL 70-105 Sodium 143 mEq/L 134-149 Potassium 4.7 mEq/L 3.6-5.5 BUN/Creat Ratio 19.3 Calc 8.0-36.0 Laboratory test finding 09/19/2013 , Serum neg Laboratory test finding 07/08/2012 Free T4 1.42 ng/dL 0.75-1.54 TSH 5.05 mIU/L 0.50-6.00 Laboratory test finding 05/15/2012 Free T4 1.19 ng/dL 0.75-1.54 TSH 23.19 mIU/L High 0.50-6.00 29 Laboratory test finding 10/23/2011 Free T4 1.32 ng/dL 0.75-1.54 TSH 7.58 mIU/L High 0.50-6.00 30 Comprehensive Metabolic Prof 01/10/2011 Albumin 4.5 g/dL 3.8-5.5 Alk. Phos. 86 U/L 30-110 Alt (SGPT) 29 U/L 7-35 Ast (Sgot) 18 U/L 5-34 BUN 18 mg/dL 6-26 Calcium 9.5 mg/dL 8.6-10.2 Chloride 102 mEq/L 94-112 Creatinine 0.8 mg/dL 0.6-1.4 Carbon Dioxide 27 mEq/L 21-32 Glucose 81 mg/dL 70-105 Sodium 139 mEq/L 134-149 Total Bilirubin 0.5 mg/dL 0.2-1.3 Total Protein 7.5 g/dL 6.3-8.1 Potassium 4.2 mEq/L 3.6-5.5 Globulin 3.0 g/dL 2.0-4.8 A/G Ratio 1.5 Calc 0.6-2.2 BUN/Creat Ratio 21.4 Calc 8.0-36.0 Laboratory test finding 01/10/2011 Free T4 1.41 ng/dL 0.75-1.54 TSH 8.24 mIU/L High 0.50-6.00 31 CBC Electronic ([facility]) 01/10/2011 WBC 9.5 3.6-9.6 RBC 4.70 3.90-5.70 Hemoglobin (Fma/CMC/CTX) 14.3 g/dL 12.1 - 17.2 Hematocrit (Fma/CMC/CTX) 41.2 % 36.1 - 50.3 Platelets 281 10^3/ul 150-400 Lymph% 34.9 20.5-51.1 Mixed% 5.2 Neutrophils % 59.9 Mean Corpuscular Vol 87.7 82.2-97.4 Mean Corpuscular Hemoglobin 30.4 27.6-33.3 Mean Corpuscular Hemo Concen 34.7 32.0-36.0 RDW 12.8 11.6-13.7 Mean Platelet Volume 12.1 High 6.5-11.0 Laboratory test finding 01/10/2011 , Serum negative Laboratory test finding 01/10/2011 Urine Culture Escherichia coli 32 Ua - Micro ([facility]) 01/10/2011 Appearance CLOUDY Color YELLOW Glucose, Urine (Fma/CMC/CTX) NEG Bilirubin NEG Ketones NEG SP Grav 1.020 Blood NEG PH 7.0 Protein NEG Urobil 0.2 Nitrite POS Leukocytes (Fma/CMC/Centrex) SMALL Hyaline - /Lpf Granular - /Lpf WBC (Fma,Centrex) 10-12 RBC 0-2 Mucus (Fma/CBC/Centrex) - /Lpf Epith RARE /Lpf Bacteria 3+ /Hpf Amorphous (Fma/CMC/Centrex) - /Lpf Crystals, Fluid (Fma/CMC/CTX) - Z#Comments - Ua - Micro (Fma) 08/17/2009 Appearance cloudy Color orange Glucose, Urine (Fma/CMC/CTX) - Bilirubin - Ketones - SP Grav 1.020 Blood large PH 7.0 Protein - Urobil 0.2 Nitrite + Leukocytes (Fma/CMC/Centrex) moderate Hyaline - /Lpf Granular - /Lpf WBC (Fma,Centrex) >50 RBC >50 Mucus (Fma/CBC/Centrex) small amt. /Lpf Epith occ /Lpf Bacteria 3+ /Hpf Amorphous (Fma/CMC/Centrex) - /Lpf Crystals, Fluid (Fma/CMC/CTX) - Z#Comments - Laboratory test finding 08/17/2009 Hemoglobin A1c (Fma/CMC,CX) 5.3 % 4.1- 5.7 Urine (a) 08/17/2009 SP Grav 1.020 Urine, (Fma/CMC/CTX) negative Laboratory test finding 08/17/2009 TSH 3.68 mIU/L 0.50-6.00 Laboratory test finding 08/17/2009 FSH 5.1 mIU/ml 33, 34 LH 5.1 mIU/ml 33, 35 Prolactin 7.0 ng/ml 33, 36 Urine Culture Escherichia coli 33, 37 Urine (Fma) 01/20/2009 SP Grav 1.025 Urine, (Fma/CMC/CTX) NEGATIVE Laboratory test finding 01/20/2009 Urine Culture (Fma/CMC) POSITIVE Ua - Micro (a) 01/20/2009 Appearance CLEAR Color YELLOW Glucose - Bilirubin - Ketones - SP Grav 1.025 Blood - PH 5.5 Protein - Urobil 0.2 Nitrite - Leukocytes (Fma/CMC/Centrex) TRACE Hyaline - /Lpf Granular - /Lpf WBC (Fma,Centrex) 5-10 RBC 0-1 Mucus - /Lpf Epith FEW /Lpf Bacteria 3+ /Hpf Amorphous - /Lpf Crystals, Fluid (Fma/CMC/CTX) - Z#Comments - Laboratory test finding 06/01/2008 T-4 Free 1.4 ng/dL 0.8-1.8 38 TSH (Thyrotropin) 4.330 uIU/ml 0.350-5.500 38 Laboratory test 12/18/2007 [facility] [place] Labs FSH;LUTENIZING;TSH See Image Report finding Ua - Micro (a) 05/08/2007 Appearance CLEAR Color LT YELLOW Glucose NEG Bilirubin NEG Ketones NEG SP Grav 1.015 Blood NEG PH 6.5 Protein SSA TRACE Urobil 0.2 Nitrite POSITIVE Leukocytes (Fma/CMC/Centrex) TRACE Hyaline - /Lpf Granular - /Lpf WBC (Fma,Centrex) 20-22 RBC 3-5 Mucus -- /Lpf Epith OCCASSIONAL /Lpf Bacteria 4++ /Hpf Amorphous - /Lpf Crystals, Fluid (Fma/CMC/CTX) - Z#Comments - Laboratory test finding 05/01/2007 , Serum NEGATIVE Ua - Micro (a) 05/01/2007 Appearance CLEAR Color YELLOW Glucose NEG Bilirubin NEG Ketones NEG SP Grav 1.020 Blood NEG LMP 03/03/07 PH 5.5 Protein SSA NEG Urobil 1.0 Nitrite POSITIVE Leukocytes (Fma/CMC/Centrex) 1+ Hyaline - /Lpf Granular - /Lpf WBC (Fma,Centrex) 20-25 RBC - Mucus - /Lpf Epith OCC /Lpf Bacteria 4+ /Hpf Amorphous - /Lpf Crystals, Fluid (Fma/CMC/CTX) - Z#Comments - Urine (Fma) 05/01/2007 SP Grav 1.020 Urine, (Fma/CMC/CTX) NEGATIVE Laboratory test finding 01/30/2007 TSH (Fma/CMC/Centrex) 4.66 uIU/ml 0.5- 6.0 Free T4 (Fma/CMC/Centrex) 1.23 ng/dL 0.75-1.54 CBC Electronic-[facility] 01/30/2007 WBC 9.7 High 3.6-9.6 RBC 4.61 3.90-5.70 Hemoglobin (Fma/CMC/CTX) 14.1 g/dL 12.1 - 17.2 Hematocrit (Fma/CMC/CTX) 40 % 36.1 - 50.3 Mean Corpuscular Vol 86.9 82.2-97.4 Mean Corpuscular Hemaglobin 30.7 27.6-33.3 Mean Corpuscular Hemo Concen 35.3 33.0-36.0 RDW 11.6 11.6-13.7 Platelets 265 10^3/ul 150-400 Mean Platelet Volume 9.9 7.4-10.4 Neutrophils % 70.9 42.2-75.2 Lymphocytes % 25.3 % 20.5 - 51.1 Monocytes % 3.8 % 1.7-9.3 Eosinophil - Basophil% - Abs Neutrophils - Abs Lymphs - Abs Mononuclear - Abs Eosinophils - Abs Basophils - Basic Metabolic-ALL Lab 01/30/2007 Glucose, Serum 112 mg/dL High 70-105 Compan (Fma/CMC/CTX) BUN (Fma/CMC/Centrex) 19 mg/dL 6-26 Creatinine (Fma/CMC/CTX) 0.9 mg/dL 0.6-1.4 Sodium 138 134-149 Potassium 3.7 3.6-5.5 Chloride 106 mEq/L 94-112 Co2 27 21-32 Calcium (Fma/CMC/Centrex) 9.7 mg/dL 8.6-10.2 Laboratory test finding 09/06/2005 Throat Culture NEGATIVE @ 48HRS Lipid Profile 02/03/2003 Triglycerides 163 mg/dL 37.0 - 241.0 Cholesterol, Total 143 mg/dL 120.0 - 200.0 39 HDL Cholesterol 27 mg/dL Low 40.0 - 60.0 Urinalysis 02/03/2003 Color YELLOW Appearance HAZY Specific [facility] 1.020 1.003 - 1.03 Leukocytes SMALL Nitrite NEGATIVE PH 6.50 5 - 8 Protein 15 mg/dL Glucose NEGATIVE mg/dL Ketones NEGATIVE mg/dL Urobilinogen NORMAL mg/dL Bilirubin NEGATIVE Occult Blood TRACE WBC 0-1 hpf RBC 0-1 hpf Casts 0 lpf Crystals 0 hpf Amorphous Precipitates 1+ hpf Bacteria 2+ hpf Epithelial Cells 2-5 hpf Mucous Threads 1+ hpf Laboratory test finding 02/03/2003 LDL Cholesterol, Calc. 83 mg/dL <130 40 LDL/HDL Cholesterol 3.1 41 Chol/HDL Cholesterol 5.3 42 Free T4/TSH 02/02/2003 TSH (Thyrotropin) 3.23 uIU/ml 0.49 - 4.67 (Fma/CMC/Centrex) T-4 Free 1.0 ng/dL 0.7 - 1.9 Laboratory test finding 02/02/2003 Hemoglobin A1c 5.2 % 43 Comprehens.+ Hepatic 02/02/2003 Glucose 79 mg/dL 61.0 - 110.0 BUN 14 mg/dL 8.0 - 21.0 Creatinine, Serum 0.8 mg/dL 0.6 - 1.2 Sodium 140 mmol/L 136.0 - 145.0 Potassium 4.7 mmol/L 3.4 - 5.0 Chloride 105 mmol/L 99.0 - 107.0 Carbon Dioxide 28 mmol/L 23.0 - 33.0 Albumin 3.9 g/dL 3.7 - 5.6 Protein, Total 7.5 g/dL 6.3 - 8.6 Calcium 9.4 mg/dL 9.2 - 10.7 Alkaline Phosphatase 121 U/L 70.0 - 230.0 Sgot (Ast) 24 U/L 10.0 - 30.0 SGPT (Alt) 29 U/L 5.0 - 30.0 Bilirubin, Total 0.20 mg/dL 0.2 - 1.3 Bilirubin, Direct 0.00 mg/dL 0.0 - 0.6 Bilirubin, Indirect 0.20 mg/dL 0.1 - 1.1 CBC 02/02/2003 WBC 5.8 x10*3 4.3 - 10.9 RBC 4.74 x10*6 4.3 - 5.2 Hemoglobin 13.4 g/dL 12.0 - 16.0 Hematocrit 40.1 % 37.0 - 47.0 MCV 84.5 fl 82.0 - 98.0 MCH 28.4 pg 28.0 - 33.0 MCHC 33.6 g/dL 32.0 - 36.0 RDW 13.8 % 11.5 - 14.5 Platelet Count 250 x10*3 130.0 - 400.0 MPV 9.2 fl 6.5 - 10.5 Segmented Neutrophils 47.5 % 44.0 - 74.0 Lymphocytes 42.2 % 15.0 - 45.0 Monocytes 8.6 % 2.0 - 13.0 Eosinophils 1.2 % 0.0 - 6.0 Basophils 0.5 % 0.0 - 2.0 Neutrophil Absolute 2.8 x10*3 1.4 - 7.0 Lymphocytes Absolute 2.4 x10*3 1.0 - 3.4 Monocyte Absolute 0.5 x10*3 0.2 - 1.0 Eosinophil Absolute 0.1 x10*3 0.0 - 0.5 Basophil Absolute 0.0 x10*3 0.0 - 0.2 Laboratory test finding 07/02/2002 , Serum <2 mIU/ml 44 Chlamydia + GC Group 07/01/2002 Chlamydia By Dna Probe NEGATIVE GC By Dna Probe NEGATIVE Laboratory test finding 07/01/2002 Vaginal Culture FINAL 45 Vaginal Culture 07/01/2002 Screen Trichomonas Vaginalis Dna FINAL 46 Screen Leigha Species Dna FINAL 47 Screen Gardnerella Vaginalis Dna FINAL 48 HPV Detection + Typing 07/01/2002 Low Risk, HPV FINAL 49 High Risk, HPV FINAL 50 Ua - Micro (a New) 06/18/2002 Appearance CLEAR/YELLOW Glucose NEG Bilirubin NEG Ketones TRACE SP Grav 1.020 Blood NEG PH 6.5 Protein NEG Urobil 1.0 Nitrite NEG Leukocytes TRACE Hyaline - /Lpf Granular - /Lpf WBC'S 10-15 RBC'S 1-3 Mucus - /Lpf Epith MOD Bacteria 1+ Amorphous SLT /Lpf Crystals - /Lpf Comments - Laboratory test finding 01/27/2002 Glucose 78 mg/dL 70 - 118 Laboratory test finding 09/23/2001 Throat Culture POSITIVE Ua - Micro (a New) 12/11/2000 Appearance CLEAR/YELLOW Glucose NEG Bilirubin NEG Ketones NEG SP Grav 1.015 Blood SMALL PH 6.5 Protein NEG Urobil 0.2 Nitrite NEG Leukocytes NEG Hyaline - /Lpf Granular - /Lpf WBC'S 3-5 RBC'S 1-3 Mucus - /Lpf Epith FEW Bacteria 1+ Amorphous SLT /Lpf Crystals - /Lpf Comments SEE DETAIL 51 1 consistent w/ previous results 2 NEGATIVE FOR INTRAEPITHELIAL LESION AND MALIGNANCY. SPECIMEN REPROCESSED FOR INTERPRETATION USING GLACIAL ACETIC ACID (GAA). 3 Satisfactory for evaluation. Endocervical and/or squamous metaplastic cells (endocervical component) are present. 4 Z12.4 5 Susana Winston, Natural Resource Officer (ASCP) 6 The Pap smear is a screening test designed to aid in the detection of premalignant and malignant conditions of the uterine cervix. It is not a diagnostic procedure and should not be used as the sole means of detecting cervical cancer. Both false-positive and false-negative reports do occur. 7 This liquid based ThinPrep(R) pap test was screened with the use of an image guided system. 8 The HPV DNA reflex criteria were not met with this specimen result therefore, no HPV testing was performed. 9 1 orange aptima 10 Calculate total score by adding the 3 individual bacterial vaginosis (BV) marker scores together. Total score is interpreted as follows: Total score 0-1: Indicates the absence of BV. Total score 2: Indeterminate for BV. Additional clinical data should be evaluated to establish a diagnosis. Total score 3-6: Indicates the presence of BV. This test was developed and its performance characteristics determined by [facility]. It has not been cleared or approved by the Food and Drug Administration. The FDA has determined that such clearance or approval is not necessary. 11 This test was developed and its performance characteristics determined by [facility]. It has not been cleared or approved by the Food and Drug Administration. The FDA has determined that such clearance or approval is not necessary. 12 1 sst 13 consistent w/ previous results 14 consistent w/ previous results 15 consistent w/ previous results 16 FASTING 17 RESULTS VERIFIED BY REPEAT ANALYSIS 18 FASTING 19 RESULTS VERIFIED BY REPEAT ANALYSIS 20 RESULTS VERIFIED BY REPEAT ANALYSIS 21 RESULTS VERIFIED BY REPEAT ANALYSIS 22 RESULTS VERIFIED BY REPEAT ANALYSIS 23 RESULTS VERIFIED BY REPEAT ANALYSIS 24 RESULTS VERIFIED BY REPEAT ANALYSIS 25 RESULTS VERIFIED BY REPEAT ANALYSIS 26 RESULTS VERIFIED BY REPEAT ANALYSIS 27 RESULTS VERIFIED BY REPEAT ANALYSIS 28 [facility] [facility] or Extension [id number] [employer] CYTOLOGY REPORT Patient: KELI PEIRRE : 1990 AGE: 23 Y SEX: F Acct: [id number] Procedure Date: 09/19/2013 Date Received: 09/22/2013 Requesting Provider: INDIGO GILLETTE NP Location: [facility] [place] Case No. [id number] Requisition #: [id number] CYTOLOGIC INTERPRETATION: SPECIMEN ADEQUACY SATISFACTORY FOR EVALUATION, ENDOCERVICAL TRANSFORMATION ZONE COMPONENT PRESENT GENERAL CATEGORIZATION NEGATIVE FOR INTRAEPITHELIAL LESIONS OR MALIGNANCY RECOMMENDATIONS Refer to the corresponding web sites for 2012 updated general recommendation guidelines of [place] preventive service task force for cervical cancer screening, and www.asccp.org//[email or web address]. COMMENTS Thin Prep Pap tests are examined with an FDA approved location-guidance system. PATIENT DATA: SPECIMEN SUBMITTED: * * (HPVII) THIN PREP W/HPV (LSIL/ASC/ARIS) * * ENDOCERVICAL RELEVANT HISTORY: Menarche: Y Comment: LMP: COUPLE MONTHS AGO ADDITIONAL COPIES SENT TO: Screened/Rescreened Electronically Signed Sign Out Date/Time: by: by: JOHNIE FARIA, 09/22/2013 14:38 CT(ASCP) Note: The Pap smear is a screening test designed to aid in the detection of premalignant and malignant conditions of the uterine cervix. It is not a diagnostic procedure and should not be used as the sole means of detecting cervical cancer. Both false-positive and false-negative reports do occur. 00 UA Pap Smear performed at [facility] Dir: Sonja Galarza MD, [address] [address] 01 inventory analyst Sunil Moss Dir: Ej Bower MD, [address] [facility] [id number] 02 [facility] Dir: Christiano Dickerson MD, [facility] [facility] [address] For inquiries regarding HPV test results, the physician may contact [facility]: [phone] . 29 RESULT DORIS'D 30 RESULT DORIS'D 31 RESULT DORIS'D 32 Escherichia coli >100,000 col/ml URINE CULTURE organism 1 Escherichia coli >100,000 col/ml Ertapenem <=0.5 mcg/mL Susceptible Amikacin <=2 mcg/mL Susceptible Amoxicillin/CA <=2 mcg/mL Susceptible Ampicillin <=2 mcg/mL Susceptible Aztreonam <=1 mcg/mL Susceptible Cefazolin <=4 mcg/mL Susceptible Ciprofloxacin <=0.25 mcg/mL Susceptible Gentamicin <=1 mcg/mL Susceptible Levofloxacin <=0.12 mcg/mL Susceptible Nitrofurantoin 32 mcg/mL Susceptible Tetracycline <=1 mcg/mL Susceptible Trimethoprim/Sulfa <=20 mcg/mL Susceptible 33 1SST,1BORITEX 34 . Normally Menstruating Females: Follicular Phase: 2.5-10.2 Mid-Cycle Peak : 3.4-33.4 Luteal Phase : 1.5-9.1 ..............: <0.3 Postmenopausal........: 23.0-116.3 Males.................: 1.4-18.1 . 35 . Normally Menstruating Females: Follicular Phase: 1.9-2.5 Mid-Cycle Peak : 8.7-76.3 Luteal Phase : 0.5-16.9 ..............: <0.1-1.5 Postmenopausal........: 15.9-54.0 Contraceptives........: 0.7-5.6 Males (age 20-70 yrs).: 1.5-9.3 Males (age >70 yrs)...: 3.1-34.0 Children..............: 0.1-6.0 . 36 . FEMALES: Non : 2.8-29.2 : 9.7-208.5 Postmenopausal : 1.8-20.3 MALES:................: 2.1-17.7 . 37 >100,000 col/ml URINE CULTURE organism 1 Escherichia coli >100,000 col/ml Ertapenem <=0.5 mcg/mL Susceptible Amikacin 4 mcg/mL Susceptible Amoxicillin/CA 4 mcg/mL Susceptible Ampicillin <=2 mcg/mL Susceptible Aztreonam <=1 mcg/mL Susceptible Cefazolin <=4 mcg/mL Susceptible Ciprofloxacin <=0.25 mcg/mL Susceptible Gentamicin <=1 mcg/mL Susceptible Levofloxacin <=0.12 mcg/mL Susceptible Nitrofurantoin <=16 mcg/mL Susceptible Piperacillin/tazobactam <=4 mcg/mL Susceptible Tetracycline <=1 mcg/mL Susceptible Trimethoprim/Sulfa <=20 mcg/mL Susceptible 38 1 SST 39 Cholesterol Risk Levels (NIH) Recommended: under 200 mg/dl Borderline : 200-239 mg/dl High Risk : Above 240 mg/dl . 40 LDL Cholesterol Risk Levels (NIH) Recommended: under 130 mg/dl Borderline: 131 - 159 mg/dl High Risk: above 160 mg/dl . 41 LDL/HDL RISK RATIO LEVELS MALE FEMALE 1/2 X AVERAGE 1.0 1.47 AVERAGE 3.55 3.22 2 X AVERAGE 6.25 5.03 3 X AVERAGE 7.99 6.14 LDL/ HDL Risk Ratio Levels MALE FEMALE 1/2 X Average 1.00 1.47 Average 3.55 3.22 2 X Average 6.25 5.03 3 X Average 7.99 6.14 . 42 CHOL/HDL RISK RATIO LEVELS MALE FEMALE 1/2 X AVERAGE 3.4 3.3 AVERAGE 5.0 4.4 2 X AVERAGE 9.5 7.0 3 X AVERAGE 24.0 11.0 CHOL/HDL Risk Ratio Levels MALE FEMALE 1/2 X Average 3.4 3.3 Average 5.0 4.4 2 X Average 9.5 7.0 3 X Average 24.0 11.0 . 43 GLUCOSE CONTROL: > 8 ACTION SUGGESTED 7-8 GOOD CONTROL <7 GOAL 6-7 NEAR NORMAL GLYCEM <6 NON DIABETIC LEVEL HGBA1C (%) GLUCOSE CONTROL >8 Action Suggested 7-8 Good Control <7 Goal 6-7 Near Normal Glycem <6 Non-diabetic Level . 44 LESS THAN 5: NEGATIVE FOR 6 - 25: INDETERMINATE FOR SUGGEST RECOLLECTION IN 72 HRS GREATER THAN 25: POSITIVE FOR . PLEASE NOTE: THIS TEST METHODOLOGY IS LIMITED TO THE EARLY DETECTION OF . FALSE RESULTS CAN OCCUR DUE TO, BUT NOT LIMITED TO, THE PRESENCE OF HETEROPHILIC ANTIBODIES, NON-SPECIFIC PROTEIN BINDING, ALTERED FORMS OF HCG, HCG-LIKE SUBSTANCES, TROPHOBLASTIC OR NON-TROPHOBLASTIC NEOPLASMS. . 45 Source: VAGINAL Normal vaginal malini. 46 Source: VAGINAL NEGATIVE 47 Source: VAGINAL NEGATIVE 48 Source: VAGINAL NEGATIVE 49 Source: CERVICAL Negative for low risk HPV types 6/11/42/43/44 50 Source: CERVICAL Negative for high/intermediate risk HPV types 16/18/31/33/35/39/45/51/52/56/58/59/68 51 JUST FINISHED MENSES Procedures Date CPT Code Description Status Comment 04/08/2018 96764 Finger Or Heel Stick Completed 04/09/2017 83892 Remove Impact Cerumen Irrigati Completed 12/28/2016 27769 Brief Emotional/Behav Assessment W/ Completed Scoring Doc Per Standard Inst 12/28/2016 23027 Finger Or Heel Stick Completed 10/15/2015 Diabetic Retinal Eye Exam Completed no retinopathy 08/23/2015 16638 Finger Or Heel Stick Completed 09/25/2012 43109 Remove Impacted Cerumen Completed 01/20/2009 04632 Remove Impacted Cerumen Completed Encounters Type Date Location Provider CPT E/M Dx Office Visit 05/07/2018 10:20a Main Office Dilia Barreto M.D. 76562 E11.65 E66.01 F17.210 Z71.6 Office Visit 04/08/2018 10:45a Main Office Leslie Alexander, ANDREA 62709 E11.65 Office Visit 04/04/2018 7:15p Main Office Cony Valdez, TAMEKA 51964 J30.9 J45.901 Office Visit 01/10/2018 1:40p [facility] Dilia Barreto M.D. 02523 E11.65 E66.01 E03.9 N97.9 F17.210 Office Visit 11/02/2017 9:40a [facility] Dilia Barreto M.D. 22260 E11.65 E66.01 E03.9 F32.9 Z23 N91.2 Office Visit 07/11/2017 6:40p Main Office Dilia Barreto M.D. 45353 Z01.419 Office Visit 06/08/2017 9:40a [facility] Office Dilia Barreto M.D. 53812 E11.65 E66.01 M25.561 N93.8 Office Visit 05/09/2017 1:40p Main Office Dilia Barreto M.D. 39351 E11.65 E03.9 Office Visit 04/09/2017 9:40a Main Office Dilia Barreto M.D. 83145 E11.65 E03.9 E66.01 H61.22 Z68.44 Office Visit 12/28/2016 1:20p [facility] Dilia Barreto M.D. 33428 E11.65 E66.01 E03.9 E55.9 Z23 Z13.9 Office Visit 05/29/2016 11:20a Main Office Dilia Barreto M.D. 49529 E11.65 E66.01 E55.9 R13.19 Office Visit 05/26/2016 11:30a [place] [address] R13.19 Office Visit 03/01/2016 11:00a [place] [address] J02.9 E03.9 E66.01 E11.65 Office Visit 08/27/2015 11:30a Main Office ANDREA Garcia 44947 J01.90 H10.89 Office Visit 08/23/2015 6:30p Main Office Dilia Barreto M.D. 68678 E03.9 E66.01 E11.9 K58.0 H10.89 K05.00 Z23 Office Visit 05/21/2015 10:50a Main Office Dilia Barreto M.D. 27687 244.9 278.01 311 268.9 523.00 272.1 Office Visit 10/30/2014 3:00p Main Office Dilia Barreto M.D. 15007 244.9 268.9 311 278.01 Office Visit 08/05/2014 10:00a [place] [address] 244.9 626.4 311 278.01 786.2 616.10 Office Visit 07/16/2014 3:30p Main Office Kizzy AbarcaGonzález-C 10109 916.5 E906.4 Office Visit 06/08/2014 12:00p [place] [address] 244.9 626.4 784.0 311 278.01 Office Visit 12/12/2013 10:30a Main Office Indigo Gillette, DRAW BENCH OPERATOR 53930 626.4 244.9 305.1 785.6 Office Visit 09/19/2013 2:00p Main Office Indigo Gillette, DRAW BENCH OPERATOR 02713 V72.31 626.4 133.0 380.4 244.9 305.1 696.8 784.0 Office Visit 09/25/2012 9:45a Main Office Leslie Alexander, [facility] [address] 381.81 692.9 380.4 Office Visit 10/18/2011 7:30p Main Office Jayla Hutchins Afnp-C 96445 782.1 244.9 Office Visit 09/20/2011 9:00a Main Office Jayla Gonzalezkadeem Afnp-C 74401 782.1 Office Visit 01/10/2011 2:00p Main Office Dilia Barreto M.D. 54213 599.0 V70.0 626.4 Office Visit 11/22/2010 10:20a Main Office Dilia Barreto M.D. 79545 696.8 244.9 Office Visit 08/17/2009 12:30p Main Office Elizabeth Acosta M.D. 91087 626.0 244.9 599.0 628.9 477.8 Office Visit 02/03/2009 10:15a Main Office Kizzy Abarca, Afnp-C 34379 305.1 278.00 782.1 Office Visit 01/20/2009 9:45a Main Office Kizzy Abarca, Afnp-C 70508 380.4 626.0 305.1 Office Visit 04/30/2008 2:00p Main Office Kizzy Abarca, Afnp-C 04737 244.9 Office Visit 01/28/2008 2:00p Main Office Kizzy Tevin, Afnp-C 25556 246.9 Office Visit 05/01/2007 12:30p Main Office Ami Pride M.D. 14140 626.0 099.41 Office Visit 01/30/2007 3:00p Main Office Jayla Gonzalezkadeem Afnp-C 66375 278.00 V18.0 783.1 Office Visit 11/14/2005 9:15a Main Office Kizzy Abarca Afnp-C 97888 305.1 Office Visit 09/06/2005 9:45a Main Office Jayla Hutchins, Afnp-C 08353 465.9 462 Office Visit 07/03/2005 11:15a Main Office Jayla Hutchins Afnp-C 54019 465.9 466.0 Office Visit 05/18/2003 6:15p Main Office ANDREA Garcia 69230 380.10 Office Visit 02/02/2003 11:30a Main Office Ana Lang AUTOMATIC EDGER-C 29822 278.00 Office Visit 06/30/2002 4:30p Main Office BEATRIZ AraujoP-C 61745 Office Visit 06/18/2002 2:20p Main Office Jeison Holley M.D. 43526 Office Visit 05/19/2002 2:15p Main Office Ana Lang AUTOMATIC EDGER-C 70491 Office Visit 03/18/2002 8:30p Main Office Kizzy Abarca Afnp-C 38828 Office Visit 01/27/2002 4:30p Main Office Jayla Hutchins Afnp-C 71757 Office Visit 09/23/2001 2:00p Main Office Fausto Whyte M.D. 76622 Office Visit 05/15/2001 1:45p Main Office Jayla Lipscombcindy Afnp-C 18789 Office Visit 03/18/2001 4:30p Main Office ANDREA Garcia 89453 Office Visit 12/11/2000 1:40p Main Office Jovan Biggs M.D. 11257 Office Visit 11/10/2000 11:50a Main Office Fausto Whyte M.D. 23312 Office Visit 08/20/2000 6:00p Main Office ANDREA Garcia 60866 Plan of Care Future Appointment(s):07/09/2018 3:20 pm - Dilia Barreto M.D. at Main Tkplzt0505/15/2018 - Gustavo Cisse, MDR19.7 Diarrhea, rhpabogokarO36.65 Type 2 diabetes mellitus with hyperglycemiaAllComments:~B_~U_Medication Management~b_~u_ Patient Understands medications she's taking? Yes No Are there Barriers to Adherence? Yes No Has the patient been asked about herbal supplements and therapies, and OTC meds? Yes No
--- OUTSIDE RECORDS SUMMARY | 2018-05-20 09:46 | XMS REPORT ---
:1990 External Reference #:[id number] Author Organization [facility] Address [address] [place] [address] Phone [phone] Care Team Providers Name Role Phone Dilia Barreto Care Team Information Felt Coverer Unavailable Dilia Barreto Primary Care Physician Unavailable Payers Type Date Identification Numbers Payment Provider Subscriber Medicaid Effective: Policy Number: [id number] [facility] Keli Pierre 2014 PayID: [id number] [address] [address] [place] [address] Problems Date Description Provider Status Onset: 12/28/2016 [...] First Brother 30 dt AIDS. lived in [place]. Maternal Grandmother 87, ? cause of . [...] one E11.65 24HR tablet Catherine, by mouth [employer] twice a day Cetirizine HCL 04/04 Active Tablets 10mg 30tabs 1 by J30.9 Cony Regalado mouth José Miguel, every DIGITAL PRESS OPERATOR day Spacer For Mdi 04/04 Active 1units for use Slime30.9 Cony Regalado with José Miguel inhaler DIGITAL PRESS OPERATOR Steele For 03/05 Active 30units use as Dilia Young Kikp directed Mary Lou with Debra guevara fax to [employer] 02/07 Active Kit w/Device 1units test Dilia Young Mini /2017 daily Mary Lou, dx: M.D. e11 True Metrix 02/05 Active Kit w/Device 1units test Dilia Young Meter /2017 blood Mary Lou, sugar qd M.D. - dx: E11 - last seen 01/10/18 True Metrix Self 02/05 Active Strips 100units test Dilia Young Monitoring Blood blood Mary Lou, Glucose Strips sugar qd M.D. - Dx: E11 - last seen 01/10/18 Chantix Starting 01/10 [...] Tablets 200mcg 30tabs 1 by E03.9 Dilia LJessica Sodium /2013 mouth Mary Lou, every M.D. day Ibuprofen 12 Active Tablets 600mg 90tabs 1 by R51 Dilia Young mouth Mary Lou, three M.D. times a day as needed with food Gummi Active Chewtabs 2 po qd Unknown Multivitamin /0000 One Touch Ultra 01/31 Hx One use as Dilia Young Blue Glucometer /2017 directed Mary Lou, - fax to M.D. 02/05 selena [phone] Flagyl 07/17 Hx Tablets 500mg 21tabs 1 [...] Hx Tablets ER 10mg 60tabs 1 by Dilia Young 24HR mouth Mary Lou, - twice M.D. 04/08 Januvia 05/29 Hx Tablets 100mg 30tabs 1 by Dilia Young mouth Mary Lou, - every M.D. Omeprazole 05/26 Hx Capsules 40mg 30caps [address] capsule Mary Lou, - by mouth M.D. 06/08 Glipizide ER 03/01 Hx Tablets ER 5mg 60tabs one E11 24HR tablet TAMEKA Gillette - twice 08/15 daily by mouth Onetouch Ultra 03/01 Hx Strips 100units check Fausto T. blood Midura, - sugar M.D. 02/05 fasting once a day dx: e11.65 last seen 05/29/16 Azithromycin 08/27 Hx Tablets 250mg 12tabs take 2 J01.90 tablets Catherine, - by mouth [employer] 02/28 x then take 1 tablet daily for next 6 days Tobradex 08/27 Hx Suspension 0.3-0.1% 5ml 2qtt q4h H10.89 in each Catherine, - eye [employer] 02/28 until clear Ciloxan 08/23 Hx Solution 0.3% 5ml 1-2 H10.89 Dilia Young drops to Mary Lou, - right M.D. 08/27 eye every 1-6 hours until better. Metformin HCL 05/21 Hx Tablets 500mg 90tabs 1 by Dilia Young mouth Mary Lou, - every M.D. Vitamin D 05/21 Hx Capsules 74061Kmfz 1caps take 1 Dilia LJessica (Ergocalciferol) capsule Mary Lou, - by mouth M.D. 01/10 once a month Metamucil 04/29 Hx Powder 28.3% 1units 1 Dilia LJessica teaspoon Mary Lou, - in 8oz M.D. 06/08 water at night until desired effect. Gummi Bear 09/21 Hx Chewtabs 60units 2 by Dilia Young Multivitamin/Min mouth Mary Lou eral - every M.D. Medroxyprogester 08/05 Hx Tablets 10mg 10tabs 1 by 626.4 Indigo one Acetate mouth Nain DIGITAL PRESS OPERATOR - daily x 10/30 10 Azithromycin 08/05 Hx Tablets 250mg 6tabs 2 by 786.2 Indigo mouth Nain DIGITAL PRESS OPERATOR - today 08/10 and tab x 4 days Benzonatate 08/05 Hx Capsules 100mg 30caps 1 by 786.2 Indigo mouth Nain DIGITAL PRESS OPERATOR - three 08/15 times a day as needed for cough Metrogel-Vaginal 08/05 Hx Gel 0.75% 70gm 1 applicat TAMEKA Gillette orful by 08/10 vagina at bedtime x 5 days Fluconazole 08/05 Hx Tablets 150mg 1tabs 1 by mouth x TAMEKA Gillette - 1 08/06 Escitalopram 08/05 Hx Tablets 20mg 30tabs 1 by E11.65 Dilia Young Oxalate mouth Mary Lou, - every M.D. [...] po 244.9 Indigo Sodium daily TAMEKA Gillette 04/16 Medroxyprogester 12/12 Hx Tablets 10mg 10tabs 1 po 626.4 Indigo one Acetate daily x TAMEKA Gillette - 10 days 06/08 Chantix 12/12 Hx Tablets 0.5mg X 1Pack use as 305.1 11 & 1 mg directed TAMEKA Gillette X 42 and call 06/08 [facility] on Metrogel-Vaginal 09/22 Hx Gel 0.75% 70gm 1 applicat TAMEKA Gillette orful pv 09/27 hs x days Permethrin 09/19 Hx Cream 5% 60gm massage 133.0 into TAMEKA Gillette skin 12/12 neck to toes and wash off in 8 - 12 hrs, Repeat in a week Cetirizine HCL 09/19 Hx Tablets 10mg 30tabs 1 po qd 133.0 TAMEKA Gillette 12/12 Triamcinolone 09/19 Hx Cream 0.5% 15gm apply to 696.8 affected Nain DIGITAL PRESS OPERATOR - area bid 12/12 prn 09/19 Hx Tablets 28-0.8mg 30tabs 1 po V72.31 Indigo Vitamins /2012 daily Nain DIGITAL PRESS OPERATOR - 05/21 Medroxyprogester 09/19 Hx Tablets 10mg 10tabs 1 po 626.4 Indigo one Acetate daily x Nain DIGITAL PRESS OPERATOR - 10 days 12/12 Loratadine/Pseud 09/27 Hx Tablets ER 10-240mg 30tabs 1 po qd Leslie oephedrine /2011 24HR Catherine, - [employer] 09/19 Pseudoephedrine 09/25 Hx Tablets 30mg 20tabs Take one 381.81 Leslie HCL tablet Catherine, - PO bid [employer] 09/27 Aquaphor 09/25 Hx Ointment 1bottle Apply to 692.9 affected Catherine, - areas at [employer] 09/27 belt line bid Topicort 09/25 Hx Cream 0.25% 30gm rub in sparingl Catherine, - y bid [employer] 09/19 prn Levothyroxine 05/23 Hx Tablets 150mcg 30tabs 1 po qd 244.9 Indigo Sodium /2011 Nain DIGITAL PRESS OPERATOR - 02/13 Lice Killing 01/10 Hx Shampoo 0.33-4% 118ml leave Dilia L. Maximum Strength shampoo Mary Lou, - in for M.D. 09/25 minutes Levothyroxine 10/31 Hx 100mcg 30units 1 po qd Liset - Afnp-C 05/23 Prednisone 10/18 Hx Tablets 20mg 21tabs 3 po qd x 3 d, 2 Liset, - po qd x Afnp-C 09/25 4d, then 1 po qd x 4d, take with food Levothyroxine 10/13 Hx Dilia L. Sodium /2010 Mary Lou - M.D. 10/31 Topicort 09/20 Hx Cream 0.25% 30gm rub in sparingl Liset, - y bid Afnp-C 10/18 prn Synthroid 01/18 Hx Tablets 75mcg 30tabs 1 po qd Dilia L. /2010 Mary Lou - M.D. 10/18 Cipro 01/10 Hx Tablets 250mg 14tabs 1 po bid 599.0 Dilia L. /2010 x 7 d Mary Lou - M.D. [...] Hx Solution 137mcg/Sp 30ml 2 sprays 477.8 [facility]. ray bid prn Karla, - runny M.D. 11/22 Lidex 02/03 Hx Ointment 0.05% 30gm apply 782.1 bid prn Teresita Abarca-C 08/17 Bactrim DS 01/21 Hx Tablets 800-160 10tabs 1 po bid X 5 Days Teresita Abarcanp-C 02/03 Nicoderm CQ 01/20 Hx Patches 7mg/24HR 7units 1 patch 305.1 24HR q 24 hrs Teresita Abarcanp-C 08/17 Synthroid 01/29 Hx Tablets 50mcg 30tabs 1 po qd Fausto TJessica /2007 Pato, - M.D. 10/18 Bactrim DS 05/09 Hx Tablets 160mg;800 10tabs 1 PO bid Ami /2007 mg von - Feltdav, 01/27 M.D. Zithromax 05/01 Hx Tablets 250mg 1tabs 4 tabs Ami /2007 po x 1 kelly - Evi, 01/27 M.D. Nicoderm CQ 11/14 Hx Patches 14mg/Day 14units change Teresita Mayonp-C 05/01 site x weeks Kwell Shampoo 07/25 Hx 120ml Apply To Fausto T. Hair as Midura, - Dirceted M.D. 08/17 Albuterol Mdi 07/03 Hx 1units 2 puffs q 4hr [facility], - prn Afnp-C 04/30 cough wheeze Kwell Shampoo 05/25 Hx 60cc Lather Jcarlos S. /2002 X4mins [place], - Rinse M.D. 12/22 Repeat 7-10Days Cortisporin Otic 05/18 Hx Solution 10ml 3-4 gtts In R Ear Catherine, - tid X [employer] 12/22 5-7 Days Zithromax 05/19 Hx 250mg 6units 2 tabs day 1 [facility], - Afnp-C 07/08 1 tab qd days [...] 12/22 Gym 07/29 Hx Should Be Out [facility], - Of Gym Afnp-C 08/05 Until 08/06/01 Elimite Cream 03/18 Hx 60Gmtube Apply To ALL Skin Catherine, - Surfaces [employer] 03/28 Neck Down And Wash Off After 12 To 14 Hours. Medrol Dosepack 03/18 Hx 4mg 1units as Directed Catherine, - [employer] 03/28 Zithromax 11/10 Hx 250mg 6units 2 Tabs Fausto T. Day 1 Midura, - M.D. 12/11 1 Tab qd Days 2 Thru 5 Robitussin DM 11/10 Hx 4Oz One-Two Fausto T. /2000 TSP Q4H Midura, - prn as M.D. 12/11 Needed For Cough Nix Shampoo 10/31 Hx Adeqamt Use Gustavo Prieto /2000 Leave On Breiman, - For 20 M.D. 11/14 Minutes; February Repeat X1 In 2-3 Days Nizoral Cream 08/20 Hx 30GMS Apply qd Leslie /1999 Catherine, - [employer] 09/19 Gummi Hx Chewtabs 2 po qd Unknown Multivitamin /0000 - 09/21 Medications Administered in Office Medication Date Status Form Strength Qnty SIG Indications Ordering Provider Brief Administered Injection Dilia Young Emotional/Beha 017 josef Barreto M.D. W/ Scoring Doc Per Standard Inst TB Intradermal Administered Injection Jeison Prieto Test 002 Debra Holley Immunizations CPT Code Status Date Vaccine Lot # [id number] Given 11/02/2017 Influenza vac quadrivalent preservative free 3yrs [id number] [place] [address] Given 12/28/2016 Pneumococcal Conjugate Vacc-13 [id number] 03183 Given 08/23/2015 Influenza Vac, Quadrivalent, Slit Virus, Im [id number] 54378 Given 04/27/2014 Tdap Tetanus, W Pertussis HG892 66943 Given 11/12/2003 Hepatitis B Immunization, [place]-19 Years 19064 Given 11/12/2003 Hepatitis B Immunization, -19 Years 44806 Given 06/18/2002 Hepatitis B Immunization, [place]-19 Years 94756 Given 10/27/1996 Hepatitis B Immunization, -19 Years 87491 Given 03/08/1993 Td Immunization, For Use In Individuals 7 Years Or Older 45134 Given 03/08/1993 MMR Virus Immunization 48948 Given 12/13/1990 DTP Immunization 03872 Given 08/15/1989 MMR Virus Immunization 31559 Given 08/15/1989 DTP Immunization 06055 Given 02/12/1989 DTP Immunization 04728 Given 1988 DTP Immunization Vital Signs Date Vital Result Comment 05/07/2018 BP Systolic 118 mmHg BP Diastolic [...] Result H/L Range Note Laboratory test finding 04/08/2018 Hemoglobin A1c (Fma) [...] 7.0 x10^3/UL 1.5-7.2 Lymph# 2.3 x10^3/UL 0.7-4.9 Prowers# 0.3 x10^3/UL 0.1-0.9 Gran % 72.0 % 42.2-75.2 Lymph % 24.1 % 20.5-51.1 Prowers% 3.9 % 1.7-9.3 Laboratory test finding 11/02/2017 Free T3 2.17 pg/mL 2.00-4.90 Age 0907/11/2017 Age 26-29 Diagn See Comment: 2 Adeq See Comment: 3 [email or web address] See Comment: 4 Perfor See Comment: 5 Comm . Note See Comment: 6 Iglbp See Comment: 7 Reflex See Comment: 8 Laboratory test finding 07/11/2017 PDF [id number] SEE IMAGE Vaginitis Plus Nuswab 07/11/2017 Atopobium [...] 5.2 x10^3/UL 1.5-7.2 Lymph# 2.6 x10^3/UL 0.7-4.9 Prowers# 0.3 x10^3/UL 0.1-0.9 Gran % 63.1 % 42.2-75.2 Lymph % 32.4 % 20.5-51.1 Prowers% 4.5 % 1.7-9.3 Comprehensive Metabolic Prof 04/06/2017 [...] 05/21/2015 Hemoglobin A1c 6.5 % High 4.1-5.7 (a/CMC,CX) Laboratory test finding 05/21/2015 Free T4 1.13 [...] 5.0 x10^3/UL 1.5-7.2 Lymph# 2.1 x10^3/UL 0.7-4.9 Prowers# 0.3 x10^3/UL 0.1-0.9 Gran % 66.0 % 42.2-75.2 Lymph % 29.0 % 20.5-51.1 Prowers% 5.0 % 1.7-9.3 Lipid Profile 05/21/2015 Cholesterol [...] 8.24 mIU/L High 0.50-6.00 31 CBC Electronic (a) 01/10/2011 WBC 9.5 3.6-9.6 RBC 4.70 3.90-5.70 [...] Culture Escherichia coli 32 Ua - Micro (Fma) 01/10/2011 Appearance CLOUDY Color YELLOW Glucose, Urine [...] A1c (Fma/CMC,CX) 5.3 % 4.1- 5.7 Urine (Fma) 08/17/2009 SP Grav 1.020 Urine, (Fma/CMC/CTX) negative Laboratory test finding 08/17/2009 TSH 3.68 mIU/L 0.50-6.00 Laboratory test finding 08/17/2009 FSH 5.1 mIU/ml 33, 34 LH 5.1 mIU/ml 33, 35 Prolactin 7.0 ng/ml 33, 36 Urine Culture Escherichia coli 33, 37 Urine (a) 01/20/2009 SP Grav 1.025 Urine, (Fma/CMC/CTX) NEGATIVE Laboratory test finding 01/20/2009 Urine Culture (Fma/CMC) POSITIVE Ua - Micro (Fma) 01/20/2009 Appearance CLEAR Color YELLOW Glucose - [...] 4.330 uIU/ml 0.350-5.500 38 Laboratory test 12/18/2007 [facility] [place] FSH;LUTENIZING;TSH See Image Report finding Ua - Micro (Fma) 05/08/2007 Appearance CLEAR Color LT YELLOW Glucose NEG Bilirubin NEG Ketones NEG SP Grav 1.015 Blood NEG PH 6.5 Protein SSA TRACE Urobil 0.2 Nitrite POSITIVE Leukocytes (Fma/CMC/Centrex) TRACE Hyaline - /Lpf Granular - /Lpf WBC (a,Centrex) 20-22 RBC 3-5 Mucus -- /Lpf Epith [...] (Fma/CMC/CTX) NEGATIVE Laboratory test finding 01/30/2007 TSH (a/CMC/Centrex) 4.66 uIU/ml 0.5- 6.0 Free T4 (Fma/CMC/Centrex) [...] Urinalysis 02/03/2003 Color YELLOW Appearance HAZY Specific Wolcott 1.020 1.003 - 1.03 Leukocytes SMALL Nitrite [...] Risk, HPV FINAL 50 Ua - Micro (Fma New) 06/18/2002 Appearance CLEAR/YELLOW Glucose NEG Bilirubin [...] component) are present. 4 Z12.4 5 Susana Winston Maintenance Instructor (ASCP) 6 The Pap smear is a [...] developed and its performance characteristics determined by [facility]. It has not been cleared or approved by the Food and Drug Administration. The FDA has determined that such clearance or approval is not necessary. 11 This test was developed and its performance characteristics determined by [facility]. It has not been cleared or approved [...] 27 RESULTS VERIFIED BY REPEAT ANALYSIS 28 SURPRISEShareYourCart, [facility]. DEPARTMENT OF PATHOLOGY or Extension 8244 WATER SUPPLY TECHNICIAN CYTOLOGY REPORT Patient: KELI PIERRE : 1990 AGE: 23 Y SEX: F Acct: [id number] Procedure Date: 09/19/2013 Date Received: 09/22/2013 Requesting Provider: INDIGO GILLETTE NP Location: [facility] [place] Case No. [id number] Requisition #: [id number] CYTOLOGIC INTERPRETATION: SPECIMEN ADEQUACY SATISFACTORY FOR EVALUATION, ENDOCERVICAL TRANSFORMATION ZONE COMPONENT PRESENT GENERAL CATEGORIZATION NEGATIVE FOR INTRAEPITHELIAL LESIONS OR MALIGNANCY RECOMMENDATIONS Refer to the corresponding web sites for 2012 updated general recommendation guidelines of [place]. preventive service task force for cervical cancer screening, and www.asccp.org//tslpmqgxo3137. COMMENTS Thin Prep Pap tests are examined [...] occur. 00 UA Pap Smear performed at [facility] [place]: [place], [address] [place] [address] 01 online [facility] [place] Dir: Ej Bower MD, [address] [facility] [address] 02 [facility] [place] Dir: Christiano Dickerson MD, [address] [place] [phone] For inquiries regarding HPV test results, the physician may contact [facility]: [phone] . 29 RESULT DORIS'D 30 RESULT DORIS'D 31 RESULT ODRIS'D 32 Escherichia coli >100,000 col/ml URINE CULTURE [...] Date CPT Code Description Status Comment 04/08/2018 90985 Finger Or Heel Stick Completed 04/09/2017 86519 Remove Impact Cerumen Irrigati Completed 12/28/2016 36167 Brief Emotional/Behav Assessment W/ Completed Scoring Doc Per Standard Inst 12/28/2016 46567 Finger Or Heel Stick Completed 10/15/2015 Diabetic Retinal Eye Exam Completed no retinopathy 08/23/2015 50735 Finger Or Heel Stick Completed 09/25/2012 16562 Remove Impacted Cerumen Completed 01/20/2009 84530 Remove Impacted Cerumen Completed Encounters Type Date Location Provider CPT E/M Dx Office Visit 04/08/2018 10:45a Main Office Leslie Catherine, ANDREA 93295 E11.65 Office Visit 04/04/2018 7:15p Main Office Cony Valdez, DIGITAL PRESS OPERATOR 07269 J30.9 J45.901 Office Visit 01/10/2018 1:40p Northeast Office Dilia Barreto M.D. 31105 E11.65 E66.01 E03.9 N97.9 F17.210 Office Visit 11/02/2017 9:40a Northeast Office Dilia Barreto M.D. 08582 E11.65 E66.01 E03.9 F32.9 Z23 N91.2 Office Visit 07/11/2017 6:40p Main Office Dilia Barreto M.D. 89527 Z01.419 Office Visit 06/08/2017 9:40a Northeast Office Dilia Barreto M.D. 72331 E11.65 E66.01 M25.561 N93.8 Office Visit 05/09/2017 1:40p Main Office Dilia Barreto M.D. 70933 E11.65 E03.9 Office Visit 04/09/2017 9:40a Main Office Dilia Barreto M.D. 33241 E11.65 E03.9 E66.01 H61.22 Z68.44 Office Visit 12/28/2016 1:20p Northeast Office Dilia Barreto M.D. 58492 E11.65 E66.01 E03.9 E55.9 Z23 Z13.9 Office Visit 05/29/2016 11:20a Main Office Dilia Barreto M.D. 63415 E11.65 E66.01 E55.9 R13.19 Office Visit 05/26/2016 11:30a Main Office Indigo iGllette DIGITAL PRESS OPERATOR 81581 R13.19 Office Visit 03/01/2016 11:00a [place] [address] J02.9 E03.9 E66.01 E11.65 Office Visit 08/27/2015 11:30a Main Office Leslie Cookrer, [facility] 79171 J01.90 H10.89 Office Visit 08/23/2015 6:30p Main Office Dilia Barreto M.D. 04777 E03.9 E66.01 E11.9 K58.0 H10.89 K05.00 Z23 Office Visit 05/21/2015 10:50a Main Office Dilia Barreto M.D. 58003 244.9 278.01 311 268.9 523.00 272.1 Office Visit 10/30/2014 3:00p Main Office Dilia Barreto M.D. 24588 244.9 268.9 311 278.01 Office Visit 08/05/2014 10:00a Main Office Indigo Gillette, TAMEKA 08213 244.9 626.4 311 278.01 786.2 616.10 Office Visit 07/16/2014 3:30p Main Office Kizzy TevinGonzález-C 34488 916.5 E906.4 Office Visit 06/08/2014 12:00p Main Office Indigo Gillette TAMEKA 38976 244.9 626.4 784.0 311 278.01 Office Visit 12/12/2013 10:30a Main Office Indigo GilletteTAMEKA 97176 626.4 244.9 305.1 785.6 Office Visit 09/19/2013 2:00p Main Office Indigo Gillette TAMEKA 99294 V72.31 626.4 133.0 380.4 244.9 305.1 696.8 784.0 Office Visit 09/25/2012 9:45a Main Office Leslie Alexander, [employer] 80144 381.81 692.9 380.4 Office Visit 10/18/2011 7:30p Main Office González Grimaldo-C 63554 782.1 244.9 Office Visit 09/20/2011 9:00a Main Office Jhanp-C 38933 782.1 Office Visit 01/10/2011 2:00p Main Office iDlia Barreto M.D. 88077 599.0 V70.0 626.4 Office Visit 11/22/2010 10:20a Main Office Dilia Barreto M.D. 35604 696.8 244.9 Office Visit 08/17/2009 12:30p Main Office Elizabeth Acosta M.D. 70207 626.0 244.9 599.0 628.9 477.8 Office Visit 02/03/2009 10:15a Main Office Kizzy Abarca Afnp-C 31654 305.1 278.00 782.1 Office Visit 01/20/2009 9:45a Main Office Kizzy Abarca Afnp-C 84518 380.4 626.0 305.1 Office Visit 04/30/2008 2:00p Main Office Kizzy Abarca Afnp-C 67937 244.9 Office Visit 01/28/2008 2:00p Main Office Kizzy Abarca Afnp-C 65155 246.9 Office Visit 05/01/2007 12:30p Main Office Ami Pride M.D. 34587 626.0 099.41 Office Visit 01/30/2007 3:00p Main Office Jayla Hutchins Afnp-C 96168 278.00 V18.0 783.1 Office Visit 11/14/2005 9:15a Main Office Kizzy Abarca Afnp-C 39810 305.1 Office Visit 09/06/2005 9:45a Main Office Jayla Hutchins Afnp-C 80934 465.9 462 Office Visit 07/03/2005 11:15a Main Office Jayla Carloskadeem Afnp-C 07577 465.9 466.0 Office Visit 05/18/2003 6:15p Main Office ANDREA Garcia 86113 380.10 Office Visit 02/02/2003 11:30a Main Office ANDREA Araujo-C 86151 278.00 Office Visit 06/30/2002 4:30p Main Office Ana Lang [facility] 22377 Office Visit 06/18/2002 2:20p Main Office Jeison Holley M.D. 54746 Office Visit 05/19/2002 2:15p Main Office Ana Lang [facility]-C 43848 Office Visit 03/18/2002 8:30p Main Office Kizzy Abarca [facility]-C 45201 Office Visit 01/27/2002 4:30p Main Office Jayla Hutchins tameka-C 28847 Office Visit 09/23/2001 2:00p Main Office Fausto Whyte M.D. 74527 Office Visit 05/15/2001 1:45p Main Office Jayla Hutchins tameka-C 30231 Office Visit 03/18/2001 4:30p Main Office Leslie Alexander [facility] 32072 Office Visit 12/11/2000 1:40p Main Office Jovan Biggs M.D. 57899 Office Visit 11/10/2000 11:50a Main Office Fausto Whyte M.D. 99528 Office Visit 08/20/2000 6:00p Main Office Leslie Alexander [facility] 523[address] Plan of Care 05/07/2018 - Dilia Barreto M.D.E11.65 Type 2 diabetes mellitus with hyperglycemiaNew Medication:Lac-Hydrin Twelve 12 %Comments:continue all your meds.continue keeping track of your blood sugars.bring in the record next time.If your blood sugars get too low in the morning, consistently, decrease the amount of insulin at nightlac hydrin creme for your feet.Follow up:2 months.E66.01 Morbid (severe) obesity due to excess caloriesComments: congratulations on your weight loss. You are doing great.I recommend you eat a big salad every day.F17.210 Nicotine dependence, cigarettes, uncomplicatedNew Medication:Bupropion HCL ER (SR) 100 mgFollow up:2 months.AllComments:~B_~U_ Medication Management~b_~u_ Patient Understands medications she's taking? Yes No Are there Barriers to Adherence? Yes No Has the patient been asked about herbal supplements and therapies, and OTC meds? Yes No
[2018-05-20 09:52] VITALS: BP 131/80
--- NOTE | 2018-05-20 10:34 | UC ---
Knee Pain HPI - HPI Summary HPI Summary: 28 yo female presents with right knee pain for the last 5 days. She tells me that she has a hx of right knee "arthritis" and has seen Ortho in the past for this. 5 days ago she was walking on uneven ground and her right knee "gave out" . She feel forward directly onto her right knee. She was able to get up and ambulate immediately after. Since that time right knee has been painful with ambulation or standing. Has not been taking anything OTC. Denies numbness or tingling - History of Current Complaint Chief Complaint: UCLowerExtremity Stated Complaint: R KNEE COMPLAINT Time Seen by Provider: 05/20/18 09:56 Hx Obtained From: Patient Hx Last Menstrual Period: April 14, 2018 Onset/Duration: Sudden Onset Severity Initially: Mild Severity Currently: Mild Pain Intensity: 4 Pain Scale Used: 0-10 Numeric Aggravating Factor(s): Movement, Weight Bearing Alleviating Factor(s): Rest, Position Able to Bear Weight: Yes - Allergies/Home Medications Allergies/Adverse Reactions: Allergies Allergy/AdvReac Type Severity Reaction Status Date / Time Penicillins Allergy Unknown Verified 05/20/18 09:52 Reaction Details PMH/Surg Hx/FS Hx/Imm Hx Endocrine History: Hypothyroidism Psychological History: Depression - Surgical History Surgical History: None - Family History Known Family History: Positive: None - Social History Occupation: Disabled Lives: With Family Alcohol Use: Rare Substance Use Type: None Smoking Status (MU): Heavy Every Day Tobacco Smoker Type: Cigarettes Amount Used/How Often: 1 ppd Length of Time of Smoking/Using Tobacco: 14 years Have You Smoked in the Last Year: Yes Review of Systems Constitutional: Negative Skin: Negative Respiratory: Negative Cardiovascular: Negative Neurovascular: Negative Musculoskeletal: Other: - Right knee pain Neurological: Negative Psychological: Negative All Other Systems Reviewed And Are Negative: Yes Physical Exam - Summary Physical Exam Summary: GENERAL: Obese. Exam limited due to body habitus. SKIN: No rashes, sores, lesions, or open wounds. NECK: Supple. Nontender. CHEST: No accessory muscle use. Breathing comfortably and in no distress. CV: . Pulses intact PT and DP. Brisk cap refill. MSK: Right knee: Mild TTP over lateral aspect of joint line. No edema or obvious bony deformities. Negative Leonela, A/P drawer, Winter, and varus/ valgus stress. NEURO: Alert. Sensations intact and symmetric B/L LEs PSYCH: Age appropriate behavior. Triage Information Reviewed: Yes Vital Signs: Initial Vital Signs Temp 96.1 F 05/20/18 09:49 Pulse 85 05/20/18 09:49 Resp 18 05/20/18 09:49 BP 131/80 05/20/18 09:49 Pulse Ox 99 05/20/18 09:49 Vital Signs Reviewed: Yes Knee Pain Course/Dx - Course Course Of Treatment: XR: IMPRESSION: MILD OSTEOARTHRITIS. SMALL JOINT EFFUSION. Will refer her back to Orthopedics for further eval. BEATRICE wrap provided. Ibuprofen prn pain. - Differential Dx/Diagnosis Provider Diagnoses: Right knee pain Discharge - Sign-Out/Discharge Documenting (check all that apply): Patient Departure - Discharge Plan Condition: Stable Disposition: HOME Patient Education Materials: Knee Pain (ED) Referrals: Dilia Barreto MD [Primary Care Provider] - Eva Pardo MD [Medical Doctor] - As Soon As Possible Additional Instructions: If you develop a fever, shortness of breath, chest pain, new or worsening symptoms - please call your PCP or go to the ED. 1) Please follow up with Orthopedics as soon as possible for further evaluation of your knee pain - Billing Disposition and Condition Condition: STABLE Disposition: Home
--- NOTE | 2018-05-20 10:39 | RAD ---
INDICATION: Right knee pain COMPARISON: June 22, 2017 TECHNIQUE: AP, lateral, tunnel, and sunrise views were obtained. FINDINGS: There is mild spurring about the lateral and patellofemoral joint space compartments. There is mild lateral joint space narrowing. There is a small joint. IMPRESSION: MILD OSTEOARTHRITIS. SMALL JOINT EFFUSION.
== END 2018-05-20 10:53 | disposition home or self-care (01) ==
LOC: UCEAST 09:39
DX: M25.561 Pain in right knee (principal); M25.461 Effusion, right knee; M17.11 Unilateral primary osteoarthritis, right knee; Z88.0 Allergy status to penicillin; F17.210 Nicotine dependence, cigarettes, uncomplicated
CPT/HCPCS: 99212; G0463